=== PATIENT | female | born 1945 | race Caucasian/White ===

== ENCOUNTER → 2018-04-29 16:17 | Outpatient (CLI) | payer MEDICARE, SELFPAY ==
--- NOTE | 2018-04-29 16:20 | BI_ITS ---
MAMMOGRAPHY - BILATERAL SCREENING REASON FOR EXAM: Female, 73 years old. Routine annual screening examination. PERTINENT HISTORY: Aunt with breast cancer. TECHNIQUE: Digital bilateral breast brandin (3D mammographic acquisition) in the CC and MLO projections. 2-D mediolateral oblique (MLO) and craniocaudad (CC) views of both breasts were obtained. CAD: Full Field Digital Mammography with Computer Added Detection was performed. COMPARISON: Comparison is made with prior study dated February 21, 2017. FINDINGS: Breast Composition: The breasts are almost entirely fatty. There are no dominant masses or suspicious calcifications. No other significant abnormalities are identified. There has been no significant change since the prior study. BI/SCREENING MAMM (CAD), BILAT IMPRESSION: Stable bilateral screening mammogram. Yearly follow-up mammogram recommended. (A) ASSESSMENT CATEGORY: BIRADS Category 1: Negative. A letter regarding these results will be sent to the patient by the facility within 30 days. Approximately 10% of breast cancers are not detected by mammography. A normal mammogram should not delay biopsy of a clinically suspicious abnormality. [id number] Electronically Signed: Charly Sherman MD at 8:02 EST Tel [phone], Service support ,
== END ==
PROVIDERS: Family Provider Family Medicine; PCP Family Medicine; Referring Provider Nurse Practitioner Women's Health; Visit Provider Nurse Practitioner Women's Health
DX: Z12.31 Encounter for screening mammogram for malignant neoplasm of breast (principal)
CPT/HCPCS: 77063; 77067

== ENCOUNTER 2018-06-23 19:09 | Emergency (ER) | payer MEDICARE, SELFPAY ==
[2018-06-23 19:10] VITALS: BP 153/75; PULSE 74; RESP 16; TEMP 36.7; O2SAT 99; BMI 30.4
--- NOTE | 2018-06-23 19:15 | RAD_ITS ---
STUDY: X-RAY - RIGHT FOOT CLINICAL: Female, 73 years old. Trauma TECHNIQUE: 3 view(s) of the foot. COMPARISON: None. FINDINGS: There is a plantar aspect calcaneal spur. There is first metatarsal head bunion formation with hallux valgus deformity and degenerative changes of the first metatarsophalangeal joint. There is no evidence of fracture or dislocation. The soft tissues are unremarkable. RAD/Foot min 3 Views IMPRESSION: First metatarsal head bunion. Degenerative changes and hallux valgus deformity of the first metatarsophalangeal joint. Plantar aspect calcaneal spur. There is no evidence of fracture or dislocation. Electronically Signed: Nabil Galvan MD at 19:50 EST , Service support ,
--- NOTE | 2018-06-23 19:34 | ED.VISSUMM ---
- ER Visit Summary Date of Service: 06/23/18 Chief Complaint: Right foot injury History of Present Illness: The patient is a 73 F presenting with right foot injury. Patient states she stepped out of the car and twisted her foot and fell. She did not hit her head or lose consciousness. She tried Aleve at home. She is able to ambulate with pain. She complains of persistent pain in her right foot. Denies other injury. Physical Examination: Vitals are stable. Patient is afebrile. Alert no acute distress. HEENT exam is unremarkable. Neck is nontender Lungs are clear and equal bilaterally. Heart is regular rate and rhythm. Extremities right midfoot tenderness with swelling. Normal pulses. Right ankle, knee, and hip are nontender. Skin is warm and dry. No focal neurologic deficit. Remainder of exam is unremarkable. Emergency Department Course and Treatment: Right foot x-ray shows no evidence of fracture or dislocation. Patient declined pain medication. She is given a postop shoe. Advised to follow-up with her primary care physician. Advised return to ED for worsening complaints. Disposition: Discharge home Impression: Right foot contusion status post fall This note was generated with Help/Systems dictation software. It may contain incorrect words, spelling, and punctuation that were not noted in review of the chart prior to signing ED Disposition - Plan for ED Patient: Chief Complaint: Lower Extremity Injury Instructions: ED Contusion Foot Referrals: Sammy Ronquillo MD [Primary Care Provider] -
--- NOTE | 2018-06-23 20:45 | ED.DEP ---
ED Disposition - Plan for ED Patient: Chief Complaint: Lower Extremity Injury Instructions: ED Contusion Foot Referrals: Sammy Ronquillo MD [Primary Care Provider] -
[2018-06-23 21:50] VITALS: BP 150/88; PULSE 58; RESP 16; O2SAT 100
== END 2018-06-23 22:00 | disposition home or self-care (01) ==
PROVIDERS: Emergency Provider Emergency Medicine; Family Provider Family Medicine; PCP Family Medicine
DX: S90.31XA Contusion of right foot, initial encounter (principal); V48.4XXA Person boarding or alighting a car injured in noncollision transport accident, initial encounter; Y93.9 Activity, unspecified; Y92.89 Other specified places as the place of occurrence of the external cause; Y99.8 Other external cause status; E78.00 Pure hypercholesterolemia, unspecified
CPT/HCPCS: 73630; 99282

== ENCOUNTER → 2021-11-16 | Outpatient (CLI) | payer MEDICARE, SELFPAY ==
--- NOTE | 2021-11-16 12:30 | BI_ITS ---
MAMMOGRAPHY - BILATERAL SCREENING REASON FOR EXAM: Female, 76 years old. Routine annual screening examination. PERTINENT HISTORY: Aunt with breast cancer. TECHNIQUE: Digital bilateral breast curry (3D mammographic acquisition) in the CC and MLO projections. 2-D mediolateral oblique (MLO) and craniocaudad (CC) views of both breasts were obtained. CAD: Full Field Digital Mammography with Computer Added Detection was performed. COMPARISON: Screening mammogram from 04/29/2018, 02/21/2017. FINDINGS: Breast Composition: There are scattered areas of fibroglandular density. There are no dominant masses or suspicious calcifications. No other significant abnormalities are identified. There has been no significant change since the prior study. BI/SCRN MAMM (CAD)W/CURRY BILAT IMPRESSION: Stable bilateral screening mammogram. Yearly follow-up mammogram recommended. (A) ASSESSMENT CATEGORY: BIRADS Category 1: Negative. A letter regarding these results will be sent to the patient by the facility within 30 days. Approximately 10% of breast cancers are not detected by mammography. A normal mammogram should not delay biopsy of a clinically suspicious abnormality. [id number] Electronically Signed: Chukcy Rodriguez, at 18:03 EDT ,
== END | disposition home or self-care (01) ==
PROVIDERS: PCP Family Medicine; Visit Provider Nurse Practitioner Women's Health
DX: Z12.31 Encounter for screening mammogram for malignant neoplasm of breast (principal); Z80.3 Family history of malignant neoplasm of breast
CPT/HCPCS: 77063; 77067

== ENCOUNTER → 2022-04-12 | Outpatient (CLI) | payer MEDICARE, SELFPAY ==
[2022-04-12 12:14] LABS: Absolute Lymphocyte Count 1.24 X10^3/uL (0.83-4.51); Absolute Neutrophil Count 4.2 X10^3/uL (2.0-7.7); Basophil# 0.05 X10^3/uL; Basophil% 0.8 % (0-1); Eosinophil# 0.28 X10^3/uL; Eosinophils% 4.3 % (0-5); Hematocrit 42.9 % (37-47); Hemoglobin 13.5 g/dL (12.0-15.0); Lymphocyte # 1.24 X10^3/ul (0.83-4.51); Lymphocyte % 19.2 % (19-41); Mean Corp Hgb Conc 31.5 g/dL (32-36); Mean Corpuscular Hgb 27.7 pg (27.0-32.0); Mean Corpuscular Volume 88.1 fL (81-99); Mean Platelet Vol. 11.4 fl (6.2-12.0); Monocyte# 0.68 X10^3/uL; Monocyte% 10.5 % (0-10); NRBC Flagged by Analyzer 0 % (0-5); Neutrophil % 64.9 % (47-70); Platelet Count 257 K/mm3 (150-450); RBC Distribution Width SD 41.8 fl (35.1-43.9); Red Blood Count 4.87 M/mm3 (4.2-5.4); White Blood Count 6.5 K/mm3 (4.4-11.0)
[2022-04-12 12:27] LABS: ALB/GLOB Ratio 0.9 RATIO (0.9-2.4); AST(SGOT) 22 U/L (15-37); Alanine Aminotransfer ALT/SGPT 23 U/L (13-56); Albumin, Serum 3.5 g/dL (3.2-5.0); Alkaline Phosphatase 74 U/L (45-117); Anion Gap 5 (5-15); BUN 11 mg/dL (7-18); BUN/Creat Ratio 10.6 RATIO (10-20); Calcium,Total 9.3 mg/dL (8.5-10.1); Chloride 107 mmol/L (98-107); Cholesterol 145 mg/dL (200); Creatinine, Serum 1.04 mg/dL (0.55-1.02); EST Glomerular Filtration Rate 55 mL/min (>60); Est Glom Filt Rate - Afr Amer 66 mL/min (>60); Globulin 3.7 g/dL (2.2-4.2); Glucose 94 mg/dL (74-106); High Density Lipoprotein 57 mg/dL; Potassium 4.4 mmol/L (3.5-5.1); Protein, Total 7.2 g/dL (6.4-8.2); Sodium Level 140 mmol/L (136-145); Triglycerides 91 mg/dL; Very Low Density Lipoprotein 18 mg/dL (5-40)
== END | disposition home or self-care (01) ==
LOC: BIMLAB 09:16
PROVIDERS: PCP Internal Medicine; Referring Provider Internal Medicine; Visit Provider Internal Medicine
DX: E78.00 Pure hypercholesterolemia, unspecified (principal); K62.5 Hemorrhage of anus and rectum
CPT/HCPCS: 36415; 80053; 80061; 85025

== ENCOUNTER → 2022-05-29 | Outpatient (CLI) | payer MEDICARE, SELFPAY | END | disposition home or self-care (01) | LOC: LABSPEC 11:40 | PROVIDERS: PCP Internal Medicine; Referring Provider Internal Medicine; Visit Provider Internal Medicine | DX: R05.9 Cough, unspecified (principal) | CPT/HCPCS: 87635; U0003; U0005 ==

== ENCOUNTER 2022-08-02 06:26 | Day surgery (SDC) | payer MEDICARE, SELFPAY ==
[2022-08-02] MEDS: Lactated Ringers 1,000 ML 15 ML IV (06:45)
[2022-08-02 06:56] VITALS: BP 127/65; PULSE 71; RESP 16; TEMP 35.9; O2SAT 96; BMI 29.5
--- NOTE | 2022-08-02 07:30 | COLBX_PTH ---
PATIENT: EMERSON SALEH LOC: EN U#:[id number] AGE/SX: 77/F ROOM: RE08/02/[address]: Dr. Drew Torres MD : 1945 BED: DIS: 08/02/2022 SPEC #: [id number] RECD: 08/02/22 13:21 STATUS: HALLE GARCIA #: [id number] RYAN: 08/02/22 07:[address]: Drew Torres DEPT: SURGICAL PATHOLOGY RECD BY: Gayle Damon ENTERED: 08/02/22 13:45 SP TYPE: COLON BX OTHR DR: Dr. Karolina Lamb MD Tissues: Rectum, NOS Procedures: Surgery Specimen Level IV HEADER OPERATION: Colonoscopy (MAC), biopsy PRE-OP DIAGNOSIS: Bright red blood per rectum TISSUE SUBMITTED: Rectal biopsy MICROSCOPIC DIAGNOSIS Rectum, biopsy: Chronic active colitis pattern of injury with mild activity. See comment. AM:ruth 08/03/2022 COMMENT Sections show glandular distortion, expansion of lamina propria by inflammatory cells, cryptitis without crypt abscesses, fissuring ulcers or transmural lymphoid aggregates. Clinical correlation is suggested. MICROSCOPIC DESCRIPTION Slides are reviewed. GROSS DESCRIPTION Received in fixative is one container labeled with the patient's name and designated rectal biopsy. The specimen consists of two irregular fragments of light dobbs soft tissue that in aggregate measure 0.6 x 0.3 x 0.1 cm. The specimen is totally submitted in one cassette. / SJ:ruth 08/02/2022 TC:2 CPT: 55476
--- NOTE | 2022-08-02 07:39 | HP.PCM_ITS ---
History and Physical Date of Admission: 08/02/22 Date of Service:? 06/08/22 MR#: [id number] Acct: [id number] Name:EMERSON JOHNSON Rep #: [id number] : 1945 ? ? Provider: Dr. Drew Torres MD Age/Sex:? 77/F ? ? Location: [facility] Status: Signed Intake Vital Signs ? 06/08/2213:17 Height 5 ft 4 in Weight: 180 lb 2 oz BMI 30.9 BP 153/78 H Blood Pressure Location Rt brachial Position Sitting Respiration 18 Pulse 69 Pulse Source Monitor D Temp 97.3 F L Temp Source Temporal Pulse Oximetry (%) 97 Oxygen Delivery Method room air Intake Visit Reasons:?HEMORRHAGEOF ANUS AND RECTUM - POSSIBLE BANDING Chief Complaint: Hemorrhage of anus and rectum Corporate Buyer Required: No Is patient in pain?: No Allergies No Known Allergies Allergy (Unverified 06/08/22 13:20) Medications atorvastatin 10 mg tablet (Lipitor) 10 mg PO DAILY 05/13/18 [History Confirmed 06/08/22] calcium carbonate 600 mg calcium (1,500 mg) tablet (Calcium) 600 mg PO DAILY 11/21/21 [History Confirmed 06/08/22] cranberry 400 mg capsule 400 mg PO DAILY 11/21/21 [History Confirmed 06/08/22] glucosamine HCl 500 mg tablet 500 mg PO DAILY 11/21/21 [History Confirmed 06/08/22] multivitamin 1 tab PO DAILY 11/21/21 [History Confirmed 06/08/22] omega-3 fatty acids 1,000 mg capsule 1,000 mg PO DAILY 11/21/21 [History Confirmed 06/08/22] vit A 7,160 unit-vit C 113 mg-vit E 100 qofs-[id number]-gycinv tablet tab PO 11/21/21 [History Confirmed 06/08/22] PFSH Medical History? High cholesterol Surgical History? H/O tubal ligation Family History? Father Heart diseaseMother Diabetes Social History? household members:? none housing:? house current occupational status:? 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 Never smoker Electronic Cigarette Use:? not used alcohol intake:? current alcohol intake frequency: holidays/special occasions only substance use type:? does not use what type of physical activity do you participate in:? walking frequency:? 3-4 times per week seatbelt use:? always do you feel safe at home:? Yes additional social history:? HPI HPI HPI: Patient is a 77-year-old female who presents for complaint of bright red blood per rectum.? They first noted this issue over a month ago.? She states that this is painless bleeding and that her primary care provider, Dr. Lamb, believe this may be related to hemorrhoids.? However, their use of cortisone cream has had no effect.? Patient reports that she is having bleeding with almost every bowel movement and then experiences some bleeding in the intervals between bowel movements occasionally.? She reports a volume of bleeding and has a tablespoon at most.? Generally when considering her bowel movements she describes a frequency of 1 time per day with minimal straining.? She admits that her consistency can sometimes be hard.? She reports a toilet time of no more than 5 minutes generally.? She has no history of incontinence of stool.? She eats a well-balanced, high-fiber diet with oatmeal and vegetables.? She admits a history of hemorrhoids, but states that these have always responded to conservative measures and no intervention has ever been required.? She also states that the current presentation is confusing as she has no pain or tissue protrusion whereas her previous experience was with external hemorrhoids and both of these things were true.? There is no personal history of inflammatory bowel disease, colon cancer, or diverticulitis.? She does report that she believes she is up-to-date on colonoscopy exams and estimates her last exam was 5 to 10 years ago through a [facility] facility here locally.? She believes she was given a 10-year follow-up on that exam. Patient believes her mother may have had a history of colon polyps, but otherwise there are no remarkable GI diagnoses. Patient is not prescribed any blood thinners or anticoagulation. Patient remarks of occasional reflux symptoms, but states this is much better than previously when she would occasionally be woken up out of her sleep with reflux. Patient's only prior abdominal surgical history with a tubal ligation ROS General General: No weight change, appetite, fatigue, colon cancer, breast cancer or weakness HEENT HEENT: No difficulty swallowing, eye injury, eye surgery, swollen glands or hoarseness Endo Endocrine: No thyroid disease, diabetes mellitus, thyroid cancer, Hair loss, heat intolerance or cold intolerance Skin Skin: No rash or changing moles Breast Breast: No left breast lump, right breast lump, nipple discharge, breast pain, abnormal mammogram, abnormal US or breast enlargement Musc Musculoskeletal: Yes arthritis; No back problems, rheumatoid arthritis, gout or joint pain Cardio Cardiovascular: No murmur, pacemaker, heart disease, atrial fibrillation, high blood pressure, heart attack, heart stent, palpitations, shortness of breat with exertion or chest pain Psych Psychiatric: No depression, anxiety or hearing voices Resp Respiratory: No shortness of breath, No sleep apnea, No cough, No COPD, No asthma, No emphysema and No wheezing Gastro Gastrointestinal: No abdominal pain, No nausea or vomiting, No diarrhea, No constipation, Yes blood in stool, No acid reflux, Yes hemorrhoids, No ulcers, No gallbladder problem and No black,tarry stools Frank Hematologic: No blood thinners, No blood disorders, Yes bleeding, No anemia and No blood clots Neuro Neurologic: No system reviewed and no additional complaints, except as documented, No as per HPI, No abnormal gait, No abnormal hearing, No abnormal movements, No abnormal speech, No behavioral changes, No burning sensations, No confusion, No convulsions, No disequilibrium, No dizziness, No localized weakness, No frequent falls, No headache(s), No lack of coordination, No loss of vision, No memory loss, No numbness, No other visual disturbances, No radicular pain, No restless legs, No sensory deficit, No syncope, No tingling, No tremor(s), No weakness and No other Exam Const General: cooperative, healthy appearing, comfortable and no acute distress Orientation: alert, awake and oriented x3 GI Rectal Exam: normal sphincter tone and hemorrhoids (Patient has evidence of engorgement of right posterior column hemorrhoids) Other: External evidence of skin tags, normal sphincter tone, palpable engorged hemorrhoid tissue right anterior position.? Gloved finger when withdrawn does not exhibit signs of blood Assessment and Plan Assessment and Plan (1) Bright red blood per rectum: ?Status:?Acute ?Comment: This is a 77-year-old, generally healthy, female who presents for concerns of over 1 month history of noting bright red blood per rectum with bowel movements.? This would be painless bleeding and she denies any significant problems with constipation.? She does have a history of hemorrhoids and seems to have some mild engorgement of hemorrhoids on digital rectal exam.? Although she reports that she believes she is up-to-date on her colonoscopies, it has been over 5 years since her most recent exam.? With her complaints, I have recommended that we proceed for a diagnostic colonoscopy and then could consider banding of any engorged hemorrhoids at that time?taking advantage of sedation provided by anesthesia.? Patient was accepting of this recommendation and we will look to arrange a date.? Patient was provided prep instructions prior to her departure. ?Plan: Plan will be to complete colonoscopy on first mutually agreeable date under local MAC.? Pre-procedure prep discussed and paper instructions provided.? Patient is also made aware that she will need to have a shuttle bus driver with her the day of the procedure. I have examined the patient and the H&P has been reviewed. There are no clinical changes since date of exam. Patient confirms that she continues to have occasional bright red blood per rectum?which she attributes to hemorrhoids. She does not have any symptomatic anemia. She confirms that she completed her prep today's procedure. Plan to proceed to the endoscopy suite for diagnostic colonoscopy as discussed above.
[2022-08-02 08:40] VITALS: BP 117/72; BP 127/65; PULSE 78; RESP 16; TEMP 36.7; O2SAT 98
[2022-08-02 08:45] VITALS: BP 123/70; BP 127/65; PULSE 74; RESP 16; O2SAT 97
[2022-08-02 08:50] VITALS: BP 124/71; BP 127/65; PULSE 74; RESP 16; O2SAT 97
--- NOTE | 2022-08-02 08:50 | OP.COLON_ITS ---
Patient Name: Simran Mccullough Procedure Date: 08/02/2022 7:15 AM Date of : 1945 Age: 77 Procedure: Colonoscopy Indications: Hematochezia Providers: Drew Torres MD Referring MD: Drew Torres MD Medicines: See the Anesthesia note for documentation of the administered medications Patient Profile: Refer to note in patient chart for documentation of history and physical. Last Colonoscopy: several years ago. Complications: No immediate complications. Estimated blood loss: Minimal. Procedure: Pre-Anesthesia Assessment: - The heart rate, respiratory rate, oxygen saturations, blood pressure, adequacy of pulmonary ventilation, and response to care were monitored throughout the procedure. After I obtained informed consent, the scope was passed under direct vision. Throughout the procedure, the patient's blood pressure, pulse, and oxygen saturations were monitored continuously. The colonoscope was introduced through the anus and advanced to the cecum, identified by appendiceal orifice and ileocecal valve. The colonoscopy was somewhat difficult due to poor bowel prep and significant looping. Successful completion of the procedure was aided by changing the patient to a supine position and lavage. Scope In: 7:45:19 AM Scope Withdrawal Time 0 hours 21 minutes 25 seconds Scope Out: 8:34:08 AM Total Procedure Duration Time 0 hours 48 minutes 49 seconds Findings: Many small and large-mouthed diverticula were found in the sigmoid colon. No biopsies or other specimens were collected for this exam. Localized moderate mucosal changes characterized by congestion (edema) and erythema were found in the rectum. Biopsies were taken with a cold forceps for histology. Estimated blood loss was minimal. Skin tags were found on perianal exam. Impression: - Diverticulosis in the sigmoid colon. No specimens collected. - Localized moderate mucosal changes were found in the rectum secondary to proctitis. Biopsied. - Perianal skin tags found on perianal exam. Recommendation: - Discharge patient to home (via wheelchair). - High fiber diet today. - Await pathology results. - Telephone my office for pathology results in 1 week. - Repeat colonoscopy is recommended [Repeat reason]. The colonoscopy date will be determined after pathology results from today's exam become available for review. - Continue present medications. Procedure Code(s): --- Professional --- 87376, Colonoscopy, flexible; with biopsy, single or multiple Diagnosis Code(s): --- Professional --- K62.89, Other specified diseases of anus and rectum K64.4, Residual hemorrhoidal skin tags K92.1, Melena (includes Hematochezia) K57.30, Diverticulosis of large intestine without perforation or abscess without bleeding CPT copyright 2017 [employer]. All rights reserved. The codes documented in this report are preliminary and upon hoop coiling machine operator review may be revised to meet current compliance requirements. Drew Torres MD 08/02/2022 8:50:25 AM This report has been signed electronically. Number of Addenda: 0 Note Initiated On: 08/02/2022 7:15 AM
--- NOTE | 2022-08-02 08:51 | OP.CCLET_ITS ---
08/02/2022 Karolina Lamb Md Re : Colonoscopy procedure for Simran Mccullough Dear Adonis This procedure was performed on July. My impressions and recommendations are as follows: Impressions : - Diverticulosis in the sigmoid colon. No specimens collected. - Localized moderate mucosal changes were found in the rectum secondary to proctitis. Biopsied. - Perianal skin tags found on perianal exam. Recommendations : - Discharge patient to home (via wheelchair). - High fiber diet today. - Await pathology results. - Telephone my office for pathology results in 1 week. - Repeat colonoscopy is recommended [Repeat reason]. The colonoscopy date will be determined after pathology results from today's exam become available for review. - Continue present medications. My findings are described in the full procedure note, which is enclosed. If I can be of further assistance, please feel free to contact me at Doctor phone number(s): , Work: . Sincerely, Drew Torres MD 08/02/2022 8:50:25 AM This report has been signed electronically.
[2022-08-02 08:56] VITALS: BP 106/85; BP 127/65; PULSE 70; RESP 16; TEMP 36.2; O2SAT 98
[2022-08-02 09:16] VITALS: BP 127/65
== END 2022-08-02 09:56 | disposition home or self-care (01) ==
LOC: EN 06:31 → AC 06:31
PROVIDERS: PCP Internal Medicine; Referring Provider Surgery; Visit Provider Surgery
PROC: 0DJD8ZZ Inspection of Lower Intestinal Tract, Via Natural or Artificial Opening Endoscopic (ICD-10-PCS; CPT 45378; principal; 2022-08-02 07:25)
DX: K52.9 Noninfective gastroenteritis and colitis, unspecified (principal); K57.30 Diverticulosis of large intestine without perforation or abscess without bleeding; K21.9 Gastro-esophageal reflux disease without esophagitis; K64.4 Residual hemorrhoidal skin tags; K62.89 Other specified diseases of anus and rectum
CPT/HCPCS: 45380; 88305; J7120; J2405

== ENCOUNTER → 2022-08-23 | Outpatient (CLI) | payer MEDICARE, SELFPAY ==
[2022-08-27 21:24] LABS: Calprotectin, Stool 136 ug/g (0-120)
== END | disposition home or self-care (01) ==
LOC: PAVLAB 13:19
PROVIDERS: PCP Internal Medicine; Referring Provider Surgery; Visit Provider Surgery
DX: K62.5 Hemorrhage of anus and rectum (principal)
CPT/HCPCS: 36415; 83993; 86140

== ENCOUNTER → 2022-09-21 | Outpatient (CLI) | payer MEDICARE, SELFPAY ==
[2022-09-21 09:56] LABS: CRP 6.05 mg/L (0.0-3.0)
[2022-09-25 11:13] LABS: Calprotectin, Stool <16 ug/g (0-120)
== END | disposition home or self-care (01) ==
LOC: PAVLAB 09:27
PROVIDERS: PCP Internal Medicine; Referring Provider Surgery; Visit Provider Surgery
DX: K51.211 Ulcerative (chronic) proctitis with rectal bleeding (principal)
CPT/HCPCS: 36415; 83993; 86140

== ENCOUNTER → 2022-12-07 | Outpatient (CLI) | payer MEDICARE, SELFPAY ==
--- NOTE | 2022-12-07 13:27 | BI_ITS ---
MAMMOGRAPHY - BILATERAL SCREENING REASON FOR EXAM: Female, 77 years old. Routine annual screening examination. PERTINENT HISTORY: Aunt with breast cancer. TECHNIQUE: Digital bilateral breast curry (3D mammographic acquisition) in the CC and MLO projections. 2-D mediolateral oblique (MLO) and craniocaudad (CC) views of both breasts were obtained. CAD: Full Field Digital Mammography with Computer Added Detection was performed. COMPARISON: Comparison is made with prior study dated November 16, 2021 and April 29, 2018. FINDINGS: Breast Composition: There are scattered areas of fibroglandular density. There are no dominant masses or suspicious calcifications. No other significant abnormalities are identified. There has been no significant change since the prior study. BI/SCRN MAMM (CAD)W/CURRY BILAT IMPRESSION: Stable bilateral screening mammogram. Yearly follow-up mammogram recommended. (A) ASSESSMENT CATEGORY: BIRADS Category 1: Negative. A letter regarding these results will be sent to the patient by the facility within 30 days. Approximately 10% of breast cancers are not detected by mammography. A normal mammogram should not delay biopsy of a clinically suspicious abnormality. [id number] Electronically Signed: Charly Sherman MD at 14:18 EDT ,
== END | disposition home or self-care (01) ==
LOC: OPBI 13:26
PROVIDERS: PCP Internal Medicine; Referring Provider Nurse Practitioner Women's Health; Visit Provider Nurse Practitioner Women's Health
DX: Z12.31 Encounter for screening mammogram for malignant neoplasm of breast (principal); Z80.3 Family history of malignant neoplasm of breast
CPT/HCPCS: 77063; 77067

== ENCOUNTER 2022-12-20 05:24 | Emergency (ER) | payer MEDICARE, SELFPAY ==
[2022-12-20 05:28] VITALS: BP 167/83; PULSE 86; RESP 16; TEMP 35.6; O2SAT 98; BMI 30.6
--- NOTE | 2022-12-20 05:45 | RAD_ITS ---
INDICATION: hip pain EXAMINATION/TECHNIQUE: X-RAY - XR Hip Unilateral with Pelvis when performed; 2-3 Views COMPARISON: AP pelvis with AP and frog-leg left hip FINDINGS: PELVIC BONES: No displaced fracture, destructive or sclerotic lesions. Note that overlapping bowel shadows may however obscure fine detail. Sacroiliac joints are appropriately aligned with mild degenerative change. No widening of the pubic symphysis. HIPS: Normal bilateral hip alignment with minimal osteophyte formation and mild joint space narrowing.. No femoral fracture appreciated. SOFT TISSUES: No soft tissue swelling or gas. Large colonic stool burden. RAD/HIP, UNI W/ Pelvis 2-3 Views IMPRESSION: No acute osseous finding. Mild bilateral hip and sacroiliac joint degenerative change Electronically Signed: Humberto Otto MD at 6:21 EDT ,
--- NOTE | 2022-12-20 05:48 | EDS_ITS ---
HPI History of Present Illness HPI Narrative: Left hip and proximal thigh pain while walking. No fall or trauma. No prior history. Chief Complaint: Lower Extremity Injury Informant: patient Occured/Mechanism Mechanism/Context: No injury and No blunt trauma Onset/Context/Timing Onset: Today Context: Sudden Onset Timing: Continuous Quality of Pain: Dull and Aching Current Severity: Mild Maximum Severity: Mild Associated Symptoms Associated Symptoms: Negative for Parasthesia, Weakness or Loss of Funtion Narrative Narrative: 77-year-old female past medical history of high cholesterol. Said at 330 this morning she got up out of bed and started to walk and noticed discomfort in her left thigh and hip. No fall or trauma. No prior history. She is able to ambulate is just uncomfortable. She has never had any hip or knee surgery. She denies any swelling. No recent illness. She is going out of town on a trip in to have this evaluated prior to leaving. Prior similar symptoms: No Recent Illness/Hospitalization: No PFSH PFSH Medical History Alcohol use Arthritis Cancer Change in bowel habit Gastric reflux Heartburn High cholesterol Leg cramps Low iron Non-smoker Post-menopausal Wears glasses Home Medications atorvastatin 10 mg tablet (Lipitor) 10 mg PO DAILY 05/13/18 [History Last Taken Unknown] calcium carbonate 600 mg calcium (1,500 mg) tablet (Calcium) 600 mg PO DAILY 11/21/21 [History Last Taken Unknown] cranberry 400 mg capsule 400 mg PO DAILY 11/21/21 [History Last Taken Unknown] glucosamine HCl 500 mg tablet 500 mg PO DAILY 11/21/21 [History Last Taken Unknown] multivitamin 1 tab PO DAILY 11/21/21 [History Last Taken Unknown] omega-3 fatty acids 1,000 mg capsule 1,000 mg PO DAILY 11/21/21 [History Last Taken Unknown] vit A 7,160 unit-vit C 113 mg-vit E 100 [id number]-[id number] tablet 1 tab PO QODAY 11/21/21 [History Last Taken Unknown] aspirin 81 mg tablet,delayed release (Adult Aspirin Regimen) 81 mg PO DAILY 12/20/22 [History Last Taken Unknown] Allergy/AdvReac Type Severity Reaction Status Date / Time No Known Allergies Allergy Verified 12/20/22 05:26 Family History Father Heart disease Mother Diabetes Surgical History H/O tubal ligation Hx of colonoscopy Surgical History no surgical history Social History household members: none housing: house current occupational status: retired current occupation: teaching Smoking Status: Never smoker Electronic Cigarette Use: not used alcohol intake: current alcohol intake frequency: holidays/special occasions only substance use type: does not use what type of physical activity do you participate in: walking frequency: 3-4 times per week seatbelt use: always do you feel safe at home: Yes additional social history: ROS ROS ED ROS Narrative Denies recent illness. Review of Systems ROS Unobtainable: Denies due to encephalopathy Constitutional Constitutional ED: Denies chills or fever(s) Eyes Eyes: Denies blurry vision ENT ENT ED: Denies ear pain Cardiovascular Cardiovascular: Denies chest pain Respiratory/Chest Respiratory/Chest: Denies cough Gastrointestinal Gastrointestinal: Denies abdominal pain Genitourinary Genitourinary ED: Denies dysuria Musculoskeletal Musculoskeletal: Denies arthralgias or back pain Integumentary Denies abscess Neurologic Neurologic: Denies headache(s) Psychiatric Psychiatric: Denies anxiety Endocrine Endocrinology: Denies polydipsia Hematologic/Lymphatic Hematologic/Lymphatic: Denies easy bleeding or easy bruising Allergic/Immunologic Allergic/Immunologic ED: Denies mouth swelling or tongue swelling EXAM Physical Exam Narrative Exam Narrative: 77-year-old female no acute distress. Vital signs stable afebrile. Sitting upright in bed. Clinically looks well. H EENT exam unremarkable. Lungs clear. Heart regular rhythm no murmur. Rate about 80. Abdomen soft nontender normal bowel sounds no peritoneal signs. Moving all 4 extremities. Neurovascular intact. 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 Equal symmetrical radial pulses. Has normal flexion and extension of both hips, knees ankle and feet. Dorsi plantarflexion intact. Strong DP pulses. Calves are nontender without edema. She has mild discomfort to the proximal left thigh anteriorly and medially. There is no bony deformity. No shortening or rotation. There is no redness or warmth of the skin. There is no bruising or trauma. There is no deficit of the muscle. Skins intact. Normal appearing. Back nontender. Neurologically she is awake and alert with no focal motor or sensory deficits. Const Vital Signs: 12/20/22 05:28 Temperature 96.1 F L Temperature Source Temporal Pulse Rate 86 Respiratory Rate 16 Blood Pressure 167/83 H Blood Pressure Mean 111 Pulse Ox 98 Oxygen Delivery Method Room Air Positive well nourished and well developed; Negative for cachectic, contractures or unkempt General Appearance ED: well developed and NAD; Negative for unkempt, cachectic or contractures Nutritional Appearance: Negative for cachectic HEENT Reports moist mucous membranes normocephalic and atraumatic; Negative for trauma or tenderness Eyes PERRL General Eye ED: Negative for other Neck full ROM and supple Thyroid: Negative for tender Lymph Lymphatic: Negative for other Chest Wall inspection of chest normal and palpation of chest normal Resp normal respiratory effort, no retractions and clear to auscultation bilaterally Effort and Inspection: Negative for pain with movement Auscultation: Negative for rales, rhonchi or wheezes Cardio regular rate, regular rhythm, S1 normal heart sound, S2 normal heart sound and no murmurs Rate: Negative for bradycardia or tachycardic Rhythm: Negative for abnormal rhythm Bruits: Negative for other GI non-tender, non-distended and no masses Inspection: Negative for abdominal distention Auscultation: normoactive bowel sounds Palpation: soft; Negative for tender or guarding Bladder / Kidney Exam: No other Back/Spine no CVA tenderness General Back: Negative for CVA tenderness or swelling Cervical Spine: Negative for cervical spine tenderness Thoracic Spine / Upper Back: Negative for thoracic spinal tenderness Lumbar Spine / Lower Back: Negative for lumbar spinal tenderness Extremity normal to inspection and full ROM Extremity Narrative: Mild left anterior thigh tenderness. No redness or warmth. Normal range of motion to the left hip, knee, ankle foot. Palpable DP pulse. Calf is nontender without edema. There is no discoloration of left thigh. No bruising, redness or warmth. No shortening or rotation. She did get up out of bed and can ambulate but has discomfort to the thigh and hip. General Extremety ED: Yes weight-bearing difficulty; Negative for cyanosis or edema General Extremity: weight-bearing difficulty; Negative for cyanosis or edema Neuro oriented x3, CN's II-XII intact bilaterally and moves all extremities Sensorium / Orientation: alert, oriented to person, oriented to place and oriented to time; Negative for orientation impaired, confused, lethargic or stuporous Motor Exam: strength 5/5 throughout Psych mental status grossly normal Appearance: Negative for unkempt Speech: No other Mood & Affect: Negative for anxious Skin no wounds Lesions: no lesions Rashes: no rashes Trauma: Negative for abrasion, laceration or puncture MDM MDM MDM Narrative Medical decision making narrative: Healthy 77-year-old female has pain in her left thigh and hip. Clinically this is most likely a left hip strain. X-ray will be obtained to rule out a nondisplaced hip fracture. There is no signs of this being infectious in etiology. There is no dislocation. There is no signs of any circulation issues. Repeat exam doing well at 6:20 AM. Ice to the area. Motrin and Tylenol for pain. Follow-up if not improving. History & Record Review Discussion w/independent historian: Patient Radiography Diagnostic Testing: Clinical Impression(s) from Imaging Studies Hip/Pelvis X-Ray 12/20/22 05:45 IMPRESSION: No acute osseous finding. 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 No fracture. No dislocation. I did go over the films with the patient. Discharge Plan Triage Chief Complaint: Lower Extremity Injury ED Provider: Baldomero Campbell Dx/Rx/DC Orders Clinical Impression: Muscle strain of left thigh Instructions: ED Muscle Strain, Extremity Prescriptions: No Action atorvastatin [Lipitor] 10 mg tablet 10 mg PO DAILY multivitamin Tablet 1 tab PO DAILY omega-3 fatty acids 1,000 mg capsule 1,000 mg PO DAILY calcium carbonate [Calcium 600] 600 mg calcium (1,500 mg) tablet 600 mg PO DAILY vit A-vit C-vit [id number] 7,160-113-100 [id number]-[id number] tablet 1 tab PO QODAY cranberry 400 mg capsule 400 mg PO DAILY Rx Instructions: administer with a meal glucosamine HCl 500 mg tablet 500 mg PO DAILY Rx Instructions: administer with a meal aspirin [Adult Aspirin Regimen] 81 mg tablet,delayed release (DR/EC) 81 mg PO DAILY Primary Care Provider: Karolina Lamb Referrals: Karolina Lamb MD [Primary Care Provider] - 1 Week if not improving Activity Restrictions/Additional Instructions: This appears to be a strain of your left thigh and hip muscles. Ice to decrease pain and inflammation. Motrin for pain and swelling. Alternate with Tylenol for pain. This should progressively improve is going to be sore for several days and should start getting better. You can do your normal activity do not overdo it because the muscles need to heal. Follow-up with your doctor if not improving or getting worse. Currently there is no signs of any infection. No signs of any broken or dislocated bones. No signs of any circulation problems. Disposition Disposition: Home, Self Care
[2022-12-20 06:32] VITALS: BP 158/84; PULSE 52; RESP 18; O2SAT 97
== END 2022-12-20 06:33 | disposition home or self-care (01) ==
PROVIDERS: Emergency Provider Emergency Medicine; PCP Internal Medicine; Visit Provider Emergency Medicine
DX: S76.912A Strain of unspecified muscles, fascia and tendons at thigh level, left thigh, initial encounter (principal); E78.00 Pure hypercholesterolemia, unspecified; X58.XXXA Exposure to other specified factors, initial encounter
CPT/HCPCS: 73502; 99282

== ENCOUNTER → 2023-02-04 | Outpatient (CLI) | payer MEDICARE, SELFPAY ==
--- NOTE | 2023-02-04 10:52 | ART_ITS ---
Reason For Study: PVD Procedure A bilateral lower extremity continuous wave Doppler with analog waveform analysis,segmental pressures,and ankle brachial indexes with exercise. PT walked on treadmill for 5 min. @ 2.2 MPH @ 5% INCLINE. PT had no complaints/pain/fatigue. Left Segmental Pressures Left brachial= 148mmHg. Left thigh = 172mmHg. Left calf = 178mmHg. Left posterior tibial artery = 162mmHg. Left dorsalis pedis artery = 168mmHg. The left posterior tibial artery waveforms are triphasic. The left dorsalis pedis waveforms are triphasic. Right Segmental Pressures Right brachial= 148mmHg. Right thigh = 167mmHg. Right calf = 164mmHg. Right posterior tibial artery = 172mmHg. Right dorsalis pedis artery = 161mmHg. The right posterior tibial artery waveforms are triphasic. The right dorsalis pedis waveforms are triphasic. Indices The right resting ankle brachial index is 1.16. The right ankle brachial index by the posterior tibial artery is 1.16. The right ankle brachial index by the dorsalis pedis is 1.09. The right post exercise ankle brachial index is 1.17. The left resting ankle brachial index is 1.14. The left ankle brachial index by the posterior tibial artery is 1.09. The left ankle brachial index by the dorsalis pedis is 1.14. The left post exercise ankle brachial index is 1.13. VL/Lower Ext Art Exam w/ Exercise Interpretation Summary Right LINDSEY 1.16, normal. Doppler/PVR waveforms of the right leg normal at rest. Right lower extremity exhibits normal response to exercise. Left LINDSEY 1.14, normal. Doppler/PVR waveforms of the left leg normal at rest. Left lower extremity exhibits normal response to exercise. Ordering Physician: Michelle Delgadillo Referring Physician: Karolina Lamb Performed By: Denae Mendoza RVT, RDCS
== END | disposition home or self-care (01) ==
PROVIDERS: PCP Internal Medicine; Referring Provider Physician Assistant; Visit Provider Physician Assistant
DX: I73.9 Peripheral vascular disease, unspecified (principal)
CPT/HCPCS: 93924

== ENCOUNTER → 2023-03-29 | Outpatient (CLI) | payer MEDICARE, SELFPAY ==
[2023-03-29 11:02] LABS: CRP < 2.90 mg/L (0.0-3.0)
[2023-04-01 21:07] LABS: Calprotectin, Stool 84 ug/g (0-120)
== END | disposition home or self-care (01) ==
PROVIDERS: PCP Internal Medicine; Referring Provider Surgery; Visit Provider Surgery
DX: K51.211 Ulcerative (chronic) proctitis with rectal bleeding (principal)
CPT/HCPCS: 36415; 83993; 86140

== ENCOUNTER → 2023-04-18 | Outpatient (CLI) | payer MEDICARE, SELFPAY ==
[2023-04-18 12:21] LABS: Absolute Lymphocyte Count 1.77 X10^3/uL (0.83-4.51); Absolute Neutrophil Count 5.7 X10^3/uL (2.0-7.7); Basophil# 0.06 X10^3/uL; Basophil% 0.7 % (0-1); Eosinophil# 0.37 X10^3/uL; Eosinophils% 4.3 % (0-5); Hematocrit 39.2 % (37-47); Lymphocyte # 1.77 X10^3/ul (0.83-4.51); Lymphocyte % 20.7 % (19-41); Mean Corp Hgb Conc 30.6 g/dL (32-36); Mean Corpuscular Hgb 27.6 pg (27.0-32.0); Mean Corpuscular Volume 90.3 fL (81-99); Mean Platelet Vol. 10.8 fl (6.2-12.0); Monocyte# 0.64 X10^3/uL; Monocyte% 7.5 % (0-10); NRBC Flagged by Analyzer 0 % (0-5); Neutrophil # 5.67 X10^3/uL (2.7-7.7); Neutrophil % 66.2 % (47-70); Platelet Count 321 K/mm3 (150-450); RBC Distribution Width CV 12.6 % (11.6-14.6); RBC Distribution Width SD 41.7 fl (35.1-43.9); Red Blood Count 4.34 M/mm3 (4.2-5.4); White Blood Count 8.6 K/mm3 (4.4-11.0)
[2023-04-18 13:01] LABS: ALB/GLOB Ratio 0.8 RATIO (0.9-2.4); AST(SGOT) 17 U/L (15-37); Alanine Aminotransfer ALT/SGPT 22 U/L (13-56); Alkaline Phosphatase 86 U/L (45-117); Anion Gap 4 (5-15); BUN 17 mg/dL (7-18); BUN/Creat Ratio 16.2 RATIO (10-20); Calcium,Total 8.9 mg/dL (8.5-10.1); Chloride 109 mmol/L (98-107); Cholesterol 131 mg/dL (200); Creatinine, Serum 1.05 mg/dL (0.55-1.02); EST Glomerular Filtration Rate 54 mL/min (>60); Est Glom Filt Rate - Afr Amer 65 mL/min (>60); Globulin 3.9 g/dL (2.2-4.2); Glucose 101 mg/dL (74-106); High Density Lipoprotein 48 mg/dL; Potassium 4.4 mmol/L (3.5-5.1); Protein, Total 6.9 g/dL (6.4-8.2); Sodium Level 142 mmol/L (136-145); Triglycerides 92 mg/dL; Very Low Density Lipoprotein 18 mg/dL (5-40)
== END | disposition home or self-care (01) ==
LOC: BIMLAB 09:24
PROVIDERS: PCP Internal Medicine; Referring Provider Internal Medicine; Visit Provider Internal Medicine
DX: K51.211 Ulcerative (chronic) proctitis with rectal bleeding (principal); E78.00 Pure hypercholesterolemia, unspecified
CPT/HCPCS: 36415; 80053; 80061; 85025

== ENCOUNTER → 2023-05-21 | Outpatient (CLI) | payer MEDICARE, SELFPAY ==
--- NOTE | 2023-05-21 08:55 | US_ITS ---
STUDY: ULTRASOUND - URINARY BLADDER REASON FOR EXAM: Female, 78 years old. incomplete bladder emptying TECHNIQUE: Ultrasound evaluation of the urinary bladder was performed with real-time and static up-scale imaging. COMPARISON: None. FINDINGS: There is no right UVJ calculus. There is a non-visualization of a right ureteral jet. There is no left UVJ calculus. There is a visualized left ureteral jet. The distended volume of the urinary bladder is 24. ml. The empty volume of the urinary bladder is 21 ml. The bladder wall is within normal limits. The bladder wall measures 2. There is no demonstrated bladder wall mass lesion. There are no demonstrated bladder calculi. US/Post Void Residual Bladder IMPRESSION: Limited by incomplete distention of the bladder. Otherwise unremarkable ultrasound of the urinary bladder. Electronically Signed: Ephraim Berg MD at 16:38 EST ,
== END | disposition home or self-care (01) ==
LOC: US 08:53
PROVIDERS: PCP Internal Medicine; Referring Provider Internal Medicine; Visit Provider Internal Medicine
DX: R33.9 Retention of urine, unspecified (principal)
CPT/HCPCS: 51798

== ENCOUNTER 2023-06-06 13:22 | Outpatient (CLI) | payer MEDICARE, SELFPAY | END 2023-06-06 23:59 | disposition home or self-care (01) | PROVIDERS: PCP Internal Medicine; Referring Provider Surgery; Visit Provider Surgery | DX: K51.211 Ulcerative (chronic) proctitis with rectal bleeding (principal) | CPT/HCPCS: 82274; 83630; 87177; 87209; 87493; 87506 ==

== ENCOUNTER → 2023-07-02 | Outpatient (CLI) | payer MEDICARE, SELFPAY ==
[2023-07-02 13:59] LABS: Absolute Lymphocyte Count 1.69 X10^3/uL (0.83-4.51); Absolute Neutrophil Count 5.4 X10^3/uL (2.0-7.7); Basophil# 0.08 X10^3/uL; Basophil% 0.9 % (0-1); Eosinophil# 0.65 X10^3/uL; Eosinophils% 7.4 % (0-5); Hematocrit 29.3 % (37-47); Hemoglobin 8.5 g/dL (12.0-15.0); Lymphocyte # 1.69 X10^3/ul (0.83-4.51); Lymphocyte % 19.2 % (19-41); Mean Corpuscular Volume 82.8 fL (81-99); Mean Platelet Vol. 10.3 fl (6.2-12.0); Monocyte# 0.97 X10^3/uL; NRBC Flagged by Analyzer 0 % (0-5); Neutrophil # 5.38 X10^3/uL (2.7-7.7); Neutrophil % 61.2 % (47-70); Platelet Count 443 K/mm3 (150-450); RBC Distribution Width CV 13.5 % (11.6-14.6); Red Blood Count 3.54 M/mm3 (4.2-5.4); White Blood Count 8.8 K/mm3 (4.4-11.0)
[2023-07-02 14:26] LABS: ALB/GLOB Ratio 0.7 RATIO (0.9-2.4); AST(SGOT) 19 U/L (15-37); Alanine Aminotransfer ALT/SGPT 22 U/L (13-56); Albumin, Serum 2.8 g/dL (3.2-5.0); Alkaline Phosphatase 86 U/L (45-117); Anion Gap 3 (5-15); BUN 17 mg/dL (7-18); BUN/Creat Ratio 19.1 RATIO (10-20); Calcium,Total 9.1 mg/dL (8.5-10.1); Chloride 110 mmol/L (98-107); Creatinine, Serum 0.89 mg/dL (0.55-1.02); EST Glomerular Filtration Rate 65 mL/min (>60); Est Glom Filt Rate - Afr Amer 79 mL/min (>60); Globulin 3.8 g/dL (2.2-4.2); Glucose 133 mg/dL (74-106); Potassium 3.6 mmol/L (3.5-5.1); Protein, Total 6.6 g/dL (6.4-8.2); Sodium Level 140 mmol/L (136-145)
[2023-07-02 14:49] LABS: Hepatitis B Surface Antibody Reactive; Hepatitis B Surface Antigen Non-Reactive (Nonreactive); Vitamin B12 442 pg/mL (211-911); Vitamin D,25 Hydroxy 30.1 ng/mL
--- OUTSIDE RECORDS SUMMARY | 2023-07-02 15:22 | XMS RPT_ITS | CCD ---
Author Name Unknown Address [address] [place] [address] Organization [facility] Care Team Providers Care Environmental Sampling Technician Name Role Phone Paulino DRAW BENCH OPERATOR, Maricarmen Lay Unavailable [phone] GERRY Shirley RN, Carmen Fleming Unavailable Unavailabl e KARISHMA HOANG, CRISTIANA Bean Primary Care Physician Unavailable Primary Care Provider Unavailabl e Unavailable Primary Care Provider Unavailabl e Medications Current Medications Medication Drug Class(es) Dates Sig (Normalized) Sig (Original) atorvastatin 10 mg oral tablet (7 sources) HMG-CoA Reductase Inhibitor Start: 10-19-2021 atorvastatin 10 mg oral tablet Dose : 10 mg = 1 tab(s), Oral, qDay, # 90 tab(s), 3 Refill(s), Pharmacy: [facility], 162, cm, 10/19/21 10:09:00 EDT, Height, kg, 10/19/21 10:09:00 EDT, Dosing Weight Start Date: 10/19/21 Status: Ordered Completed/Discontinued Medications Medication Drug Class(es) Dates Sig (Normalized) Sig (Original) ascorbic acid 500 mg oral tablet (2 sources) Vitamin C Start: 02-21-2006 VITAMIN C 500 MG TAB time release, take as needed for colds. 0 02/21/2006 Active Problems Active Problems Problem Classification Problem Date Documented Da te Episodic/Chronic Disorders of lipid metabolism (2 sources) Hypercholesterolemia; Translations: [Pure hypercholesterolemia, unspecified] Onset: 2 06-03-2012 Chronic Esophageal disorders (2 sources) Gastroesophageal reflux disease; Translations: [Gastro-esophageal reflux disease without esophagitis] Onset: 2 06-03-2012 Chronic Immunizations and screening for infectious disease (3 sources) Exposure to communicable disease 08-31-2020 Episodic Other ear and sense organ disorders (1 source) Impacted cerumen in left ear; Translations: [Impacted cerumen, left ear] Episodic Other ear and sense organ disorders (1 source) Impacted cerumen of bilateral ears; Translations: [Impacted cerumen, bilateral] 02-07-2023 Episodic Other gastrointestinal disorders (3 sources) Abdominal bloating 08-31-2020 Episodic Other gastrointestinal disorders (3 sources) Diarrhea 08-31-2020 Episodic Unclassified (1 source) Screening mammography ; Translations: [Encounter for screening mammogram for malignant neoplasm of breast] Onset: 7 02-13-2017 Unclassified (1 source) Gynecologic examination ; Translations: [Encounter for gynecological examination (general) (routine) without abnormal findings] Onset: 7 02-13-2017 Past or Other Problems Problem Classification Problem Date Documented Date Episodic/Chronic Other connective tissue disease (2 sources) History of osteopenia; Translations: [Personal history of other diseases of the musculoskeletal system and connective tissue] Onset: 02-13-2017 02-13-2017 Episodic Other non-epithelial cancer of skin (2 sources) Intraepidermal squamous carcinoma of face; Translations: [Carcinoma in situ of skin of unspecified part of face] Onset: 06-03-2012 06-03-2012 Episodic Unclassified (2 sources) Asymptomatic menopausal state; Translations: [Asymptomatic menopausal state] Onset: 02-13-2017 02-13-2017 Episodic Results Test Name Value Interpretation Reference Range Facil ity Vital Signs Date Time Vital Sign Value Performing Clinician Facility 02-07-2023 16:43-0400 Body temperature 97.9 [degF] John Sr APRN.CNP Work Phone: [facility] 02-07-2023 16:43-0400 Body weight 81.74 kg John Sr APRN.CNP Work Phone: [facility] 02-07-2023 16:43-0400 Diastolic blood pressure 80 mm[Hg] John Sr APRN.CNP Work Phone: [facility] 02-07-2023 16:43-0400 Heart rate 75 /min John Sr APRN.CNP Work Phone: [facility] 02-07-2023 16:43-0400 Respiratory rate 21 /min John Sr ROOM SERVICE RUNNER.MAJOR ACCOUNT REPRESENTATIVE Work Phone: [facility] 02-07-2023 16:43-0400 SaO2% (BldA) [Mass fraction] 98 % John ROOM SERVICE RUNNER.MAJOR ACCOUNT REPRESENTATIVE Work Phone: [facility] 02-07-2023 16:43-0400 Systolic blood pressure 130 mm[Hg] John Sr ROOM SERVICE RUNNER.MAJOR ACCOUNT REPRESENTATIVE Work Phone: [facility] 03-28-2022 14:18-0400 Body temperature 97.9 [degF] Arias Barnes MD Work Phone: [facility] 03-28-2022 14:18-0400 Body weight 84.46 kg Arias Barnes MD Work Phone: [facility] 03-28-2022 14:18-0400 Diastolic blood pressure 80 mm[Hg] Arias Barnes MD Work Phone: [facility] 03-28-2022 14:18-0400 Heart rate 73 /min Arias Barnes MD Work Phone: [facility] 03-28-2022 14:18-0400 Respiratory rate 18 /min Arias Barnes MD Work Phone: [facility] 03-28-2022 14:18-0400 SaO2% (BldA) [Mass fraction] 96 % Arias Barnes MD Work Phone: [facility] 03-28-2022 14:18-0400 Systolic blood pressure 140 mm[Hg] Arias Barnes MD Work Phone: [facility] 02-13-2017 09:34-0400 BMI (Body Mass Index) 31.13 kg/m2 Maricarmen Bob NP [facility] 02-13-2017 09:34-0400 Body Temperature 98.3 [degF] Maricarmen Bob NP [facility] 02-13-2017 09:34-0400 Body Temperature 98.29 [degF] Maricarmen Bob NP [facility] 02-13-2017 09:34-0400 BP Diastolic 79 mm[Hg] Maricarmen Bob DRAW BENCH OPERATOR [facility] 02-13-2017 09:34-0400 BP Systolic 134 mm[Hg] Maricarmen Paulino DRAW BENCH OPERATOR [facility] 02-13-2017 09:34-0400 Height 163.83 cm Maricarmen Bob NP [facility] 02-13-2017 09:34-0400 Pulse (Heart Rate) 86 /min Maricarmen Bob NP [facility] 02-13-2017 09:34-0400 Respiratory Rate 16 /min Maricarmen Bob DRAW BENCH OPERATOR [facility] 02-13-2017 09:34-0400 Weight 83.55 kg Maricarmen Bob DRAW BENCH OPERATOR [facility] Encounters Encounter Date Encounter Type Care Provider Facility Start: 02-07-2023 End: 02-07-2023 ambulatory Facility:[facility] Start: 02-07-2023 End: 02-07-2023 Patient encounter procedure John Sr APRN.CNP Work Phone: [facility] Procedures Date Procedure Procedure Detail Performing Clinician Start: 02-13-2017 Gynecologic examination Routine gynecological examination Carmen Shirley RN RN Start: 02-13-2017 End: 02-13-2017 Pelvic & Breast Exam (Medicare) Maricarmen Bob NP Work Phone: Start: 02-13-2017 Screening mammography Mammogram yearly screening Carmen Shirley RN RN Start: 02-22-2001 Endometrial biopsy CRISTIANA SCHWARZ MD Plan of Treatment Date Care Activity Detail Author Start: 02-22-2023 Influenza vaccination INFLUENZA (#1) [facility] Start: 07-09-2022 COVID-19 VACCINE (6 - Moderna series) COVID-19 VACCINE (6 - Moderna series) [facility] Start: 06-24-2022 ADVANCE DIRECTIVE DISCUSSION ADVANCE DIRECTIVE DISCUSSION [facility] Start: 06-24-2022 DEPRESSION ASSESSMENT DEPRESSION ASSESSMENT [facility] Start: 06-24-2021 ADVANCE DIRECTIVE DISCUSSION ADVANCE DIRECTIVE DISCUSSION [facility] Start: 06-24-2021 DEPRESSION ASSESSMENT DEPRESSION ASSESSMENT [facility] Start: 08-31-2017 DIABETES SCREEN DIABETES SCREEN [facility] Start: 02-13-2017 End: 02-13-[address] [facility] Start: 02-13-2017 End: 02-13-2017 DEXA scan DEXA scan [facility] Start: 02-13-2017 End: 02-13-2017 Mammogram, screening Mammogram, Screening, both breasts [facility] Start: 2011 PNEUMOCOCCAL: 65+ (1 - PCV) PNEUMOCOCCAL: 65+ (1 - PCV) [facility] Start: 01-02-1996 SHINGRIX VACCINE (1 of 2) SHINGRIX VACCINE (1 of 2) [facility] Start: 1965 Urine microalbumin profile DTAP,TDAP,TD (1 - Tdap) [facility] Removal impacted cer umen irrigation/lvg unilat AMBULATORY EAR LAVAGE/IRRIGATION Procedures Routine Impacted cerumen of left ear Ordered: 03/28/2022 [facility] Work Phone: Immunizations Immunization Date Immunization Notes Care Provider Katharina dhillon 04-24-2021 SARS-CoV-2 (COVID-19 ) mRNA-1273 vaccine CRISTIANA SCHWARZ MD [facility] 03-27-2021 influenza virus vaccine, unspecified formulation CRISTIANA SCHWARZ MD [facility] 08-26-2020 SARS-CoV-2 (COVID-19 ) mRNA-1273 vaccine CRISTIANA SCHWARZ MD [facility] 07-27-2020 SARS-CoV-2 (COVID-19 ) mRNA-1273 vaccine CRISTIANA SCHWARZ MD [facility] 03-17-2020 influenza virus vaccine, unspecified formulation CRISTIANA SCHWARZ MD [facility] Payers Date Payer Category Payer Medicare A[employer]NA MEDICARE A ETNA MEDICARE PPO [id number] 2021-Present [phone] [address] [place] [address] PPO [id number] 2021 Medicare [id number] Social History Date Type Detail Facility Start: 05-29-2011 End: 08-06-2019 Never smoked tobacco (finding) [facility] Sex Assigned At [facility] Start: 05-29-2011 Tobacco use and exposure Smokeless tobacco non-user [facility] Start: 03-28-2022 End: 02-07-2023 Alcohol intake Current non-drinker of alcohol (finding) [facility] Start: 1945 Sex Assigned At Not on file [facility] Start: 03-18-2022 End: 03-28-2022 Exposure to SARS-CoV-2 (event) Not sure [facility] Work Phone: Start: 05-29-2020 End: 02-07-2023 History of Social function [facility] Start: 05-29-2020 End: 02-07-2023 Tobacco use panel [facility] National Score (1-100), lower number is lower risk Not on file [facility] Progress note 02-07-2023 Note Date & Type Note Facility 02-07-2023 Note HNO ID: [id number] Author: John Sr APRN.MAJOR ACCOUNT REPRESENTATIVE Service: ? Author Type: Nurse Practitioner Type: Progress Notes Filed: 02/07/2023 5:52 PM Note Text: Subjective HPI HPI Emerson Mccullough is a 78 year old female who presents today for CC of right ear clogged. This started 2 weeks ago. Has tried nothing for relief. Symptoms are worsened by nothing. Risk factors hx of cerumen impaction. 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 MEDICATIONS aspirin, enteric coated (ASPIRIN, ENTERIC COATED) 81 mg EC tablet Take 81 mg by mouth once daily. GLUC/SAM-MSM#2/C/D3/LULU/BORN ([id number] WITH VIT D ORAL) Take by mouth. RANITIDINE 75 MG TAB as needed LIPITOR 10 MG TAB Take one(1) tablet daily. CALCIUM 600 + D 600 MG-125 UNIT TAB Take one(1) tablet daily. DAILY MULTIVITAMIN TAB with lutein Take one(1) tablet daily. VITAMIN C 500 MG TAB time release, take as needed for colds. FAMILY HISTORY Problem Relation Age of Onset Coronary Artery Disease Father Diabetes Mother went off her diabetes meds at the age of 90, no longer diabetic other (macular degeneration [Other]) Mother Cancer Paternal Aunt breast other (non-hodgkin's lymphoma [Other]) Son Social History Tobacco Use Smoking status: Never Smokeless tobacco: Never Substance Use Topics Alcohol use: No Drug use: No ROS Objective Blood pressure 130/80, pulse 75, temperature 36.6 ?C (97.9 ?F), resp. rate 21, weight 81.7 kg (180 lb 3.2 oz), SpO2 98 %. Physical Exam Constitutional: General: She is not in acute distress. Appearance: She is not toxic-appearing or diaphoretic. HENT: Head: Normocephalic and atraumatic. Right Ear: Hearing and external ear normal. Left Ear: Hearing and external ear normal. Ears: Comments: Initially unable to see bilat tm d/t cerumen impaction. Procedure: Provider/curette/alligator forceps And Nurse/lavage After procedure bilat canal clear and bilat tm normal Pulmonary: Effort: Pulmonary effort is normal. No accessory muscle usage or respiratory distress. Neurological: Mental Status: She is alert and oriented to person, place, and time. ASSESSMENT/PLAN: 1. Bilateral impacted cerumen - ICD9: 380.4, ICD10: H61.23 Successful lavage and curratage of bilat ears Discussed proper ear hygiene F/u for continued or new s/s - AMBULATORY EAR LAVAGE/IRRIGATION John Sr APRN.ANGELA [facility] History of Present illness Narrative 02-07-2023 John Sr APRN.ANGELA - 02/07/2023 4:55 PM EDT Note Date & Type Note Facility 02-07-2023 History of Presen t illness Narrative Subjective HPI HPI Emerson Mccullough is a 78 year old female who presents today for CC of right ear clogged. This started 2 weeks ago. Has tried nothing for relief. Symptoms are worsened by nothing. Risk factors hx of cerumen impaction. 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 MEDICATIONS aspirin, enteric coated (ASPIRIN, ENTERIC COATED) 81 mg EC tablet Take 81 mg by mouth once daily. GLUC/SAM-MSM#2/C/D3/LULU/BORN ([id number] WITH VIT D ORAL) Take by mouth. RANITIDINE 75 MG TAB as needed LIPITOR 10 MG TAB Take one(1) tablet daily. CALCIUM 600 + D 600 MG-125 UNIT TAB Take one(1) tablet daily. DAILY MULTIVITAMIN TAB with lutein Take one(1) tablet daily. VITAMIN C 500 MG TAB time release, take as needed for colds. FAMILY HISTORY Problem Relation Age of Onset Coronary Artery Disease Father Diabetes Mother went off her diabetes meds at the age of 90, no longer diabetic other (macular degeneration [Other]) Mother Cancer Paternal Aunt breast other (non-hodgkin's lymphoma [Other]) Son Social History Tobacco Use Smoking status: Never Smokeless tobacco: Never Substance Use Topics Alcohol use: No Drug use: No ROS Objective Blood pressure 130/80, pulse 75, temperature 36.6 C (97.9 F), resp. rate 21, weight 81.7 kg (180 lb 3.2 oz), SpO2 98 %. Physical Exam Constitutional: General: She is not in acute distress. Appearance: She is not toxic-appearing or diaphoretic. HENT: Head: Normocephalic and atraumatic. Right Ear: Hearing and external ear normal. Left Ear: Hearing and external ear normal. Ears: Comments: Initially unable to see bilat tm d/t cerumen impaction. Procedure: Provider/curette/alligator forceps And Nurse/lavage After procedure bilat canal clear and bilat tm normal Pulmonary: Effort: Pulmonary effort is normal. No accessory muscle usage or respiratory distress. Neurological: Mental Status: She is alert and oriented to person, place, and time. ASSESSMENT/PLAN: 1. Bilateral impacted cerumen - ICD9: 380.4, ICD10: H61.23 Successful lavage and curratage of bilat ears Discussed proper ear hygiene F/u for continued or new s/s - AMBULATORY EAR LAVAGE/IRRIGATION John Sr APRN.MAJOR ACCOUNT REPRESENTATIVE documented in this encounter [facility] Progress note 03-28-2022 Note Date & Type Note Facility 03-28-2022 Note HNO ID: [id number] Author: Arias Barnes MD Service: ? Author Type: Physician Type: Progress Notes Filed: 03/28/2022 2:44 PM Note Text: Patient presents with: Ear Problem: Left ear feels clogged x several days HPI: Feeling clogged left ear for a few days. Positive symptoms: clogged left ear, slight ringing, Negative symptoms: Cough, Sore throat, Earache, Sinus pressure, Nasal Congestion, Rhinorrhea, Post nasal drainage, Fever, dizziness, OTC: none PHx of cerumen impactions treated here - feels similar. MEDICATIONS: Current Outpatient Medications Medication Sig GLUC/SAM-MSM#2/C/D3/LULU/BORN ([id number] WITH VIT D ORAL) Take by mouth. RANITIDINE 75 MG TAB as needed LIPITOR 10 MG TAB Take one(1) tablet daily. CALCIUM 600 + D 600 MG-125 UNIT TAB Take one(1) tablet daily. DAILY MULTIVITAMIN TAB with lutein Take one(1) tablet daily. VITAMIN C 500 MG TAB time release, take as needed for colds. No current facility-administered medications for this visit. ALLERGIES: ALLERGIES No Known Allergies VITALS: BP 140/80 Pulse 73 Temp 36.6 ?C (97.9 ?F) (Tympanic) Resp 18 Wt 84.5 kg (186 lb 3.2 oz) SpO2 96% BMI 32.98 kg/m? PHYSICAL EXAM: GEN: Pleasant, in no acute distress. HEENT: PERRL, EOMI, conjunctiva clear Ears: Right canal clear. Left canal occluded by cerumen. TMs without erythema, bulge, or effusion after cerumen removal. Small adherent ribbon of debris removed with plastic cerumen hook after irrigation. Sinuses: non-tender frontal sinus, non-tender maxillary sinuses Throat: moist mucous membranes, no erythema, no exudate Neck: supple, no thyromegaly, no lymphadenopathy HEART: regular rate and rhythm, no murmurs LUNGS: clear to auscultation, no wheezes or crackles, no increased WOB ASSESSMENT/PLAN: 1. Impacted cerumen of left ear - ICD9: 380.4, ICD10: H61.22 Successful removal by staff water lavage. - AMBULATORY EAR LAVAGE/IRRIGATION Arias Barnes MD [facility] History of Present illness Narrative 03-28-2022 Arias Barnes MD - 03/28/2022 2:22 PM EDT Note Date & Type Note Facility 03-28-2022 History of Presen t illness Narrative Patient presents with: Ear Problem: Left ear feels clogged x several days HPI: Feeling clogged left ear for a few days. Positive symptoms: clogged left ear, slight ringing, Negative symptoms: Cough, Sore throat, Earache, Sinus pressure, Nasal Congestion, Rhinorrhea, Post nasal drainage, Fever, dizziness, OTC: none PHx of cerumen impactions treated here - feels similar. MEDICATIONS: Current Outpatient Medications Medication Sig GLUC/SAM-MSM#2/C/D3/LULU/BORN ([id number] WITH VIT D ORAL) Take by mouth. RANITIDINE 75 MG TAB as needed LIPITOR 10 MG TAB Take one(1) tablet daily. CALCIUM 600 + D 600 MG-125 UNIT TAB Take one(1) tablet daily. DAILY MULTIVITAMIN TAB with lutein Take one(1) tablet daily. VITAMIN C 500 MG TAB time release, take as needed for colds. No current facility-administered medications for this visit. ALLERGIES: ALLERGIES No Known Allergies VITALS: BP 140/80 Pulse 73 Temp 36.6 C (97.9 F) (Tympanic) Resp 18 Wt 84.5 kg (186 lb 3.2 oz) SpO2 96% BMI 32.98 kg/m PHYSICAL EXAM: GEN: Pleasant, in no acute distress. HEENT: PERRL, EOMI, conjunctiva clear Ears: Right canal clear. Left canal occluded by cerumen. TMs without erythema, bulge, or effusion after cerumen removal. Small adherent ribbon of debris removed with plastic cerumen hook after irrigation. Sinuses: non-tender frontal sinus, non-tender maxillary sinuses Throat: moist mucous membranes, no erythema, no exudate Neck: supple, no thyromegaly, no lymphadenopathy HEART: regular rate and rhythm, no murmurs LUNGS: clear to auscultation, no wheezes or crackles, no increased WOB ASSESSMENT/PLAN: 1. Impacted cerumen of left ear - ICD9: 380.4, ICD10: H61.22 Successful removal by staff water lavage. - AMBULATORY EAR LAVAGE/IRRIGATION Arias Barnes MD documented in this encounter [facility] Clinical Note 01-02-2022 Note Date & Type Note Facility 01-02-2022 Note ORIGINAL EXAMINATION: BONE DENSITOMETRY 01/02/2022 9:50 am TECHNIQUE: A bone density dual x-ray absorptiometry (DEXA) scan was performed of the lumbar spine and left hip on a [employer] System. COMPARISON: None. HISTORY: ORDERING SYSTEM PROVIDED HISTORY: Reason for Exam: Osteoporosis Screening Postmenopausal. FINDINGS: LUMBAR SPINE: The bone mineral density in the lumbar spine including the L1 through L4 levels is measured at 1.055 g/cm2, which corresponds to a T-score of 0.1. This is within the normal range by WHO criteria. HIP: The bone mineral density in the total hip is measured at 0.987 g/cm2 corresponding to a T-score of 0.4. This is within the normal range by WHO criteria. The bone mineral density of the femoral neck is measured at 0.797 g/cm2 corresponding to a T-score of -0.5. This is within the normal range by WHO criteria. IMPRESSION: Normal bone mineralization by WHO criteria. Interpreted by: Maricruz Hines Preliminary Report By: Maricruz Hines Electronically signed By Maricruz Hines Dictated Date: 01/02/2022 10:23:22 AM Prelim Date: 01/02/2022 10:24:50 AM Sign Date: 01/02/2022 10:24:50 AM Ordering Provider: CRISTIANA [facility] Clinical Note 01-02-2022 Note Date & Type Note Facility 01-02-2022 Note ORIGINAL EXAMINATION: BONE DENSITOMETRY 01/02/2022 9:50 am TECHNIQUE: A bone density dual x-ray absorptiometry (DEXA) scan was performed of the lumbar spine and left hip on a [employer] System. COMPARISON: None. HISTORY: ORDERING SYSTEM PROVIDED HISTORY: Reason for Exam: Osteoporosis Screening Postmenopausal. FINDINGS: LUMBAR SPINE: The bone mineral density in the lumbar spine including the L1 through L4 levels is measured at 1.055 g/cm2, which corresponds to a T-score of 0.1. This is within the normal range by WHO criteria. HIP: The bone mineral density in the total hip is measured at 0.987 g/cm2 corresponding to a T-score of 0.4. This is within the normal range by WHO criteria. The bone mineral density of the femoral neck is measured at 0.797 g/cm2 corresponding to a T-score of -0.5. This is within the normal range by WHO criteria. IMPRESSION: Normal bone mineralization by WHO criteria. Interpreted by: Maricruz Hines Preliminary Report By: Maricruz Hines Electronically signed By Maricruz Hines Dictated Date: 01/02/2022 10:23:22 AM Prelim Date: 01/02/2022 10:24:50 AM Sign Date: 01/02/2022 10:24:50 AM Ordering Provider: CRISTIANA SCHWARZ [facility] Evaluation + Plan note Note Date & Type Note Facility Evaluation + Plan note No data available for this section [facility] Evaluation note Note Date & Type Note Facility documented in this encounter [facility] Evaluation note Note Date & Type Note Facility documented in this encounter [facility] Discharge instructions Note Date & Type Note Facility Hospital Discharge instructions No data available for this section [facility] Summary Purpose Family History No Family History Records FoundNo Family History Records Found Advance Directives No Advanced Directives Records FoundNo Advanced Directives Records Found Additional Source Comments Care Team (unrecognized sect ion and content) Care Team Personnel Name: CRISTIANA SCHWARZ MD Position: P4 Physician - Primary Care Med Service: Active Provider Member Role: Primary Care Physician Address: Address: [address] [place] [address]- [place] Care Team Related Persons Name: JOLENEALEXANDRA SARA W Address: Home [address], [place] [id number] Address: Temporary [address], [place] [id number] Name: MIRIAN MCCULLOUGH Address: Home [address], [place] [id number] Address: Temporary [address], [place] [id number] INFORMATION SOURCE (unrecogn ized section and content) DATE CREATED AUTHOR AUTHOR'S ORGANMILTON ATION 02/08/2023 [facility] Source Comments (unrecognize d section and content) In the event this informatio n is protected by the Federal Confidentiality of Alcohol and Drug Abuse Patient Records regulations: The Federal rules restrict any use of the information to criminally investigate or prosecute any alcohol or drug abuse patient.[facility] event this information is protected by the Federal Confidentiality of Alcohol and Drug Abuse Patient Records regulations: The Federal rules restrict any use of the information to criminally investigate or prosecute any alcohol or drug abuse patient.[facility] Reason for Visit (unrecogniz ed section and content) Reason Comments Ear Problem Right ear clogged x 2 weeks FOR RECORDS PERTAINING TO PATIENTS WHO ARE OR HAVE BEEN ENROLLED IN A CHEMICAL DEPENDENCY/SUBSTANCEABUSE PROGRAM, SOME INFORMATION MAY BE OMITTED. This clinical summary was aggregated from multiple sources. Caution should be exercised in using it in the provision of clinical care. This summary normalizes information from multiple sources, and as a consequence, information in this document may materially change the coding, format and clinical context of patient data. In addition, data may be omitted in some cases. CLINICAL DECISIONS SHOULD BE BASED ON THE PRIMARY CLINICAL RECORDS. [facility]. provides no warranty or guarantee of the accuracy or completeness of information in this document.
[2023-07-04 13:07] LABS: Hepatitis B Core Ab Total Negative (Negative); QNTFERON TB Mitogen Value > 10.00 IU/mL (.); QNTFERON TB Nil Value 0 IU/mL (.); QNTFERON TB1+ Ag Value 0 IU/mL (.); QNTFERON TB2+ Ag Value 0 IU/mL (.); QNTIFERON TB Positive Criteria Negative (Negative)
== END | disposition home or self-care (01) ==
LOC: PAVLAB 13:31
PROVIDERS: PCP Internal Medicine
DX: K51.211 Ulcerative (chronic) proctitis with rectal bleeding (principal); K62.5 Hemorrhage of anus and rectum; R15.2 Fecal urgency; R19.7 Diarrhea, unspecified
CPT/HCPCS: 36415; 80053; 82306; 82607; 85025; 86140; 86480; 86704; 86706; 87340

== ENCOUNTER → 2023-08-26 | Outpatient (CLI) | payer MEDICARE, SELFPAY ==
[2023-08-26 16:59] LABS: Hematocrit 27.3 % (37-47); Hemoglobin 7.6 g/dL (12.0-15.0); Mean Corp Hgb Conc 27.8 g/dL (32-36); Mean Corpuscular Hgb 20.9 pg (27.0-32.0); Mean Platelet Vol. 9.4 fl (6.2-12.0); Platelet Count 649 K/mm3 (150-450); RBC Distribution Width CV 15.5 % (11.6-14.6); RBC Distribution Width SD 42.3 fl (35.1-43.9); Red Blood Count 3.64 M/mm3 (4.2-5.4); White Blood Count 10.5 K/mm3 (4.4-11.0)
[2023-08-26 18:38] LABS: ALB/GLOB Ratio 0.7 RATIO (0.9-2.4); AST(SGOT) 19 U/L (15-37); Alanine Aminotransfer ALT/SGPT 19 U/L (13-56); Albumin, Serum 2.6 g/dL (3.2-5.0); Alkaline Phosphatase 72 U/L (45-117); Anion Gap 3 (5-15); BUN 16 mg/dL (7-18); BUN/Creat Ratio 17.1 RATIO (10-20); Calcium,Total 8.8 mg/dL (8.5-10.1); Chloride 105 mmol/L (98-107); Creatinine, Serum 0.94 mg/dL (0.55-1.02); EST Glomerular Filtration Rate 61 mL/min (>60); Est Glom Filt Rate - Afr Amer 74 mL/min (>60); Globulin 3.6 g/dL (2.2-4.2); Glucose 121 mg/dL (74-106); Potassium 4.5 mmol/L (3.5-5.1); Protein, Total 6.2 g/dL (6.4-8.2); Sodium Level 137 mmol/L (136-145)
== END | disposition home or self-care (01) ==
LOC: LAB 16:37
PROVIDERS: PCP Internal Medicine; Referring Provider Internal Medicine; Visit Provider Internal Medicine
DX: K51.211 Ulcerative (chronic) proctitis with rectal bleeding (principal)
CPT/HCPCS: 36415; 80053; 85027; 86140

== ENCOUNTER → 2023-09-12 | Outpatient (CLI) | payer MEDICARE, SELFPAY ==
[2023-09-12 10:58] LABS: ALB/GLOB Ratio 0.8 RATIO (0.9-2.4); AST(SGOT) 25 U/L (15-37); Alanine Aminotransfer ALT/SGPT 25 U/L (13-56); Albumin, Serum 2.7 g/dL (3.2-5.0); Alkaline Phosphatase 79 U/L (45-117); Anion Gap 3 (5-15); BUN 11 mg/dL (7-18); BUN/Creat Ratio 13.3 RATIO (10-20); CRP < 2.90 mg/L (0.0-3.0); Calcium,Total 9.1 mg/dL (8.5-10.1); Chloride 108 mmol/L (98-107); Creatinine, Serum 0.83 mg/dL (0.55-1.02); EST Glomerular Filtration Rate 71 mL/min (>60); Est Glom Filt Rate - Afr Amer 86 mL/min (>60); Globulin 3.6 g/dL (2.2-4.2); Glucose 81 mg/dL (74-106); Potassium 4.1 mmol/L (3.5-5.1); Protein, Total 6.3 g/dL (6.4-8.2); Sodium Level 140 mmol/L (136-145)
[2023-09-12 11:05] LABS: Absolute Lymphocyte Count 0.38 X10^3/uL (0.83-4.51); Absolute Neutrophil Count 5.2 X10^3/uL (2.0-7.7); Basophil# 0.05 X10^3/uL; Basophil% 0.7 % (0-1); Eosinophil# 0.64 X10^3/uL; Eosinophils% 8.7 % (0-5); Hematocrit 27.5 % (37-47); Hemoglobin 7.5 g/dL (12.0-15.0); Lymphocyte # 0.38 X10^3/ul (0.83-4.51); Lymphocyte % 5.1 % (19-41); Mean Corp Hgb Conc 27.3 g/dL (32-36); Mean Corpuscular Hgb 20.1 pg (27.0-32.0); Mean Corpuscular Volume 73.7 fL (81-99); Monocyte# 1.04 X10^3/uL; Monocyte% 14.1 % (0-10); NRBC Flagged by Analyzer 0 % (0-5); Neutrophil # 5.22 X10^3/uL (2.7-7.7); Neutrophil % 70.7 % (47-70); POSITIVE DIFFERENTIAL YES; Platelet Count 582 K/mm3 (150-450); RBC Distribution Width CV 15.9 % (11.6-14.6); RBC Distribution Width SD 41.8 fl (35.1-43.9); Red Blood Count 3.73 M/mm3 (4.2-5.4); White Blood Count 7.4 K/mm3 (4.4-11.0)
[2023-09-19 21:07] LABS: Calprotectin, Stool 851 ug/g (0-120)
== END | disposition home or self-care (01) ==
LOC: PAVLAB 10:03
PROVIDERS: PCP Internal Medicine; Referring Provider Internal Medicine; Visit Provider Internal Medicine
DX: K51.211 Ulcerative (chronic) proctitis with rectal bleeding (principal)
CPT/HCPCS: 36415; 80053; 83993; 85025; 86140

== ENCOUNTER 2023-10-16 14:41 | Inpatient (IN) | payer MEDICARE, SELFPAY ==
[2023-10-16] VITALS (15 sets, daily range): BP systolic 137–188; BP diastolic 68–95; PULSE 68–97; RESP 12–18; TEMP 35.7–36.9; O2SAT 92–100; BMI 29.7
--- NOTE | 2023-10-16 15:22 | EDS_ITS ---
HPI History of Present Illness Chief Complaint: Abn Labs Narrative Narrative: 78-year-old female presenting with anemia. Her hemoglobin is 6.2 today. This has been trending downward. Patient states he used to follow with Dr. Torres and during a colonoscopy he noticed some inflammation of the colon and she was on steroids for several months however the inflammation continued. Patient was referred to Dr. Lance who is a GI physician in [facility]. She believes he is a [facility] physician. She states that she was diagnosed with ulcerative colitis for the first time last year. A Patient has been on immunosuppressants since last year. Patient is on Zeposia which had immunosuppressant she was recently on. It was noted that her hemoglobin was dropping. Her GI specialist felt that this could also be caused by the immune suppression drug she is on. He discontinued a couple of weeks ago. Patient states that she had a sigmoidoscopy performed by GI a couple of weeks ago and states that she believes she did not have any blood in her stool. Patient continues to trend downward. Her family does state that her skin is paler than normal. She denies any shortness of breath or lightheadedness. Patient denies any abdominal pain. She denies any black or bloody stools. She is not on any blood thinners. [facility] Medical History Alcohol use Arthritis Cancer Change in bowel habit Gastric reflux Heartburn High cholesterol Leg cramps Low iron Non-smoker Post-menopausal Ulcerative colitis Wears glasses Home Medications calcium carbonate (Calcium 600) 600 mg PO DAILY 11/21/21 [History Last Taken Unknown] glucosamine HCl 500 mg tablet 500 mg PO DAILY 11/21/21 [History Last Taken Unknown] multivitamin 1 tab PO DAILY 11/21/21 [History Last Taken Unknown] omega-3 fatty acids 1,000 mg capsule 1,000 mg PO DAILY 11/21/21 [History Last Taken Unknown] vitamins A,C,A-tzph-wyxmih 4,296 mcg-226 mg-90 mg capsule (PreserVision AREDS) 1 cap PO BID 04/15/23 [History Last Taken Unknown] Hydrocortisone 2.5%/lidocaine 5% suppository (cmpd) #30 ea 05/24/23 [Rx Last Taken Unknown] atorvastatin 10 mg tablet 10 mg PO DAILY #90 TABLETS 10/10/23 [Rx Last Taken Unknown] Allergy/AdvReac Type Severity Reaction Status Date / Time No Known Allergies Allergy Verified 10/16/23 14:43 Family History Father Heart disease Mother Diabetes Surgical History H/O tubal ligation Hx of colonoscopy Social History household members: none housing: house current occupational status: retired current occupation: teaching Smoking Status: Never smoker Electronic Cigarette Use: not used alcohol intake: current alcohol intake frequency: holidays/special occasions only substance use type: does not use what type of physical activity do you participate in: walking frequency: 3-4 times per week seatbelt use: always do you feel safe at home: Yes additional social history: ROS ROS ED Constitutional Constitutional ED: Denies chills, fever(s) or sweats Eyes Eyes: Denies blurry vision or change in vision ENT ENT ED: Denies ear pain or sore throat Cardiovascular Cardiovascular: Denies chest pain, palpitations or racing heartbeat Respiratory/Chest Respiratory/Chest: Denies cough, dyspnea or sputum Gastrointestinal Gastrointestinal: Denies abdominal pain, constipation, diarrhea, nausea or vomiting Genitourinary Genitourinary ED: Denies dysuria, hematuria or urinary frequency Musculoskeletal Musculoskeletal: Denies arthralgias, myalgias or neck pain Integumentary Denies abscess, Abrasions or rash Neurologic Neurologic: Denies headache(s), paresthesias or weakness Psychiatric Psychiatric: Denies anxiety, depression, suicidal ideation or suicidal thoughts Endocrine Endocrinology: Denies polydipsia or polyuria EXAM Physical Exam Const Vital Signs: 10/16/23 14:42 10/16/23 14:43 10/16/23 16:42 Temperature 96.2 F L 97.6 F L Temperature Source Temporal Temporal Pulse Rate 97 97 71 Respiratory Rate 12 14 16 Blood Pressure 188/89 H 188/89 H 137/84 H Blood Pressure Mean 122 122 101 Blood Pressure Source Pulse Ox 92 92 97 Oxygen Delivery Method Room Air Room Air Room Air 10/16/23 17:30 10/16/23 18:00 10/16/23 17:35 Temperature 98.2 F 98.0 F 98.0 F Temperature Source Oral Oral Oral Pulse Rate 69 68 72 Respiratory Rate 16 16 16 Blood Pressure 148/77 H 149/68 H 149/68 H Blood Pressure Mean 100 95 95 Blood Pressure Source Pulse Ox 100 100 100 Oxygen Delivery Method Room Air Room Air Room Air 10/16/23 17:50 10/16/23 20:06 Temperature 98.0 F 98.0 F Temperature Source Oral Oral Pulse Rate 72 72 Respiratory Rate 18 16 Blood Pressure 155/85 H 155/85 H Blood Pressure Mean 108 108 Blood Pressure Source Monitor Pulse Ox 100 100 Oxygen Delivery Method Room Air Positive well nourished General Appearance ED: NAD and pallor HEENT Reports moist mucous membranes Negative for trauma Eyes PERRL and EOMs intact bilaterally General Eye ED: Yes pale conjunctiva Neck no lymphadenopathy Chest Wall inspection of chest normal Resp normal respiratory effort Cardio regular rhythm GI normal to inspection, nondistended, normoactive bowel sounds, non-tender and non-distended Extremity normal to inspection Neuro oriented x3 and CN's II-XII intact bilaterally Sensorium / Orientation: alert Motor Exam: strength 5/5 throughout Psych mental status grossly normal Skin General Skin Exam: pallor MDM MDM MDM Narrative Medical decision making narrative: Patient presenting with anemia which is a fairly new problem. She denies black or bloody stools. She states been tested for occult blood in stool and had a sigmoidoscopy done a couple of weeks ago. She is also discontinued her Zeposia a couple of weeks ago as this was believed that could be causing a drop in her hemoglobin. Her hemoglobin is now lower than it was. Her hemoglobin was gone from 7 6, 7 5, to now 6.2. Differential includes upper GI bleed, lower GI bleed, ulcerative colitis, medication side effect, dehydration, anemia. CBC obtained assessment does not count, hemoglobin, platelets. CMP to assess liver function, renal function, electrolytes. Occult stool was obtained and this shows brown stool. There is no black or bloody stool. CBC shows normal blood cell count of 5.2. Hemoglobin 6.1 which is consistent with earlier. Her platelet count is 451. Renal function is normal. LFTs are normal. Patient typed, screened, crossmatch 2 units. Hemoccult was negative. Initially discussed the case with the medical services manager who recommended that I send the patient home and stated that she had spoke with Dr. Lance before he left the office and states that he is currently unreachable. She stated that this was his wishes for the patient to be discharged home although I could not speak to him. I requested to speak to another physician and I spoke with Dr. Garcia who did not give any insight in to patient's who did not give any insight and to patient's care as to whether to transfer or discharge her home. He stated that it would be based on my clinical judgment. We discussed the patient's lab work and the fact that she had a negative occult stool however that it is also possible that she have a GI bleed with a negative occult stool. He agreed with this. He again stated it was up to my clinical judgment as to whether she was hemodynamically and or need to be transferred. Given this I spoke with Dr. García. He recommended getting a couple of extra labs which include a ferritin, reticulocyte count, transferring. Ferritin was low at less than 5, reticulocyte count 1.73, transferrin pending. He also recommended CTA of the abdomen which was performed and did not show anything acute. Reviewed all these labs with Dr. García who is amenable to keeping the patient in the hospital and monitoring. Patient was discussed with the hospitalist for admission. Impression: 1. Anemia 2. History of ulcerative colitis Lab Data Labs: Laboratory Results - last 24 hr 10/16/23 10/16/23 15:15 16:57 WBC 5.2 RBC 3.25 L Hgb 6.1 L Hct 22.4 L MCV 68.9 L MCH 18.8 L MCHC 27.2 L RDW Std Deviation 40.1 RDW Coeff of Tj 16.1 H Plt Count 451 H MPV 9.7 Immature Gran % (Auto) 0.400 Neut % (Auto) 69.6 Lymph % (Auto) 11.6 L [place] % (Auto) 14.1 H Eos % (Auto) 3.7 Baso % (Auto) 0.6 Absolute Neuts (auto) 3.6 Absolute Lymphs (auto) 0.60 L Nucleated RBC % 0 Retic Count 1.73 H Immature Retic Fraction 11.00 Retic Hgb Equivalent 16.9 L Sodium 142 Potassium 4.1 Chloride 112 H Carbon Dioxide 27.0 Anion Gap 3 L BUN 13 Creatinine 0.79 Estim Creat Clear Calc 59.69 Est GFR (MDRD) Af Amer 90 Est GFR (MDRD) Non-Af 74 BUN/Creatinine Ratio 16.4 Glucose 121 H Calcium 8.7 Ferritin 5 L Total Bilirubin 0.20 AST 23 ALT 26 Alkaline Phosphatase 69 Total Protein 6.1 L Albumin 2.9 L Globulin 3.2 Albumin/Globulin Ratio 0.9 Urine Color Yellow Urine Clarity Clear Urine pH 6.5 Ur Specific Champion 1.010 Urine Protein Negative Urine Glucose (UA) Normal Urine Ketones Negative Urine Occult Blood Negative Urine Nitrite Negative Urine Bilirubin Negative Urine Urobilinogen Normal Ur Leukocyte Esterase 100 H Urine RBC 0 SEEN Urine WBC 0-5 SEEN Ur Squamous Epith Cells 0-5 SEEN Urine Bacteria 0 SEEN Urine Mucus 0 SEEN Blood Type A POSITIVE Antibody Screen NEGATIVE Crossmatch See Detail Radiography Diagnostic Testing: Clinical Impression(s) from Imaging Studies Abdomen/Pelvis CTA 10/16/23 17:04 IMPRESSION: No evidence for active GI bleeding. Cholelithiasis. Fecal retention. Electronically Signed: Ephraim Berg MD at 18:36 EDT , Discharge Plan Triage Chief Complaint: Abn Labs ED Provider: Pardeep Mcmahan Dx/Rx/DC Orders Prescriptions: No Action multivitamin Tablet 1 tab PO DAILY omega-3 fatty acids 1,000 mg capsule 1,000 mg PO DAILY calcium carbonate [Calcium 600] 600 mg calcium (1,500 mg) tablet 600 mg PO DAILY glucosamine HCl 500 mg tablet 500 mg PO DAILY Rx Instructions: administer with a meal PreserVision AREDS 4,296 mcg-226 mg-90 mg capsule 1 cap PO BID (DME) Hydrocortisone 2.5%/lidocaine 5% suppository (cmpd) Suppository See Rx Instructions .Route Qty: 30 0RF Rx Instructions: As directed atorvastatin 10 mg tablet 10 mg PO DAILY Qty: 90 1RF Primary Care Provider: Karolina Lamb Referrals: Karolina Lamb MD [Primary Care Provider] -
[2023-10-16 15:35] LABS: Absolute Neutrophil Count 3.6 X10^3/uL (2.0-7.7); Basophil# 0.03 X10^3/uL; Basophil% 0.6 % (0-1); Eosinophil# 0.19 X10^3/uL; Eosinophils% 3.7 % (0-5); Hematocrit 22.4 % (37-47); Hemoglobin 6.1 g/dL (12.0-15.0); Lymphocyte % 11.6 % (19-41); Mean Corp Hgb Conc 27.2 g/dL (32-36); Mean Corpuscular Hgb 18.8 pg (27.0-32.0); Mean Corpuscular Volume 68.9 fL (81-99); Mean Platelet Vol. 9.7 fl (6.2-12.0); Monocyte# 0.73 X10^3/uL; Monocyte% 14.1 % (0-10); NRBC Flagged by Analyzer 0 % (0-5); Neutrophil % 69.6 % (47-70); POSITIVE DIFFERENTIAL YES; Platelet Count 451 K/mm3 (150-450); RBC Distribution Width CV 16.1 % (11.6-14.6); RBC Distribution Width SD 40.1 fl (35.1-43.9); Red Blood Count 3.25 M/mm3 (4.2-5.4); White Blood Count 5.2 K/mm3 (4.4-11.0)
[2023-10-16 16:03] LABS: ALB/GLOB Ratio 0.9 RATIO (0.9-2.4); AST(SGOT) 23 U/L (15-37); Alanine Aminotransfer ALT/SGPT 26 U/L (13-56); Albumin, Serum 2.9 g/dL (3.2-5.0); Alkaline Phosphatase 69 U/L (45-117); Anion Gap 3 (5-15); BUN 13 mg/dL (7-18); BUN/Creat Ratio 16.4 RATIO (10-20); Calcium,Total 8.7 mg/dL (8.5-10.1); Chloride 112 mmol/L (98-107); Creatinine, Serum 0.79 mg/dL (0.55-1.02); EST Glomerular Filtration Rate 74 mL/min (>60); Est Glom Filt Rate - Afr Amer 90 mL/min (>60); Estimated Creatinine Clearance 59.69 ml/min; Globulin 3.2 g/dL (2.2-4.2); Glucose 121 mg/dL (74-106); Potassium 4.1 mmol/L (3.5-5.1); Protein, Total 6.1 g/dL (6.4-8.2); Sodium Level 142 mmol/L (136-145)
--- NOTE | 2023-10-16 17:04 | CT_ITS ---
INDICATION: g bleed EXAMINATION: CTA abdomen and pelvis - TECHNIQUE: Routine abdominal CT angiogram protocol was performed with IV contrast. MIP images provided. A radiation dose optimization technique was used for this scan. IV Contrast dosage and agent: Radiation dose DLP mGy / cm. COMPARISON: None. FINDINGS: Lung bases: Normal. Liver: Normal. No bile ductal dilatation. Gallbladder: Single gallstone.. Spleen: Normal. Adrenal gland: Normal. Kidneys: Normal. No hydronephrosis or stone formation. Pancreas:Normal. Bowel gas pattern: Evaluation of the GI tract is limited by absence of oral contrast. Moderate hiatal hernia. Cannot exclude stomach wall thickening. 3.9 cm duodenal diverticulum. No dilated loops of bowel or evidence for obstruction. Cannot exclude segmental thickening of the sosa of the small or large bowel. Cannot exclude enteritis or colitis. Moderate diffuse fecal retention. Diverticulosis without definite diverticulitis. Appendix is not seen. Free air: None. Free fluid: None. Pelvis: Pelvic organs: No mass lesion noted. Bone survey: No aggressive bony lesions. No acute fractures. Degenerative changes. Adenopathy: No significant pathologic adenopathy detected. Other: None. Vascular: Normal vascular anatomy, there is tortuous with no significant plaque or aneurysm. No significantly narrowed aortic branches. No extravasation of contrast to suggest active bleeding. CT/CTA Abd/Pelvis W/WO Contrast IMPRESSION: No evidence for active GI bleeding. Cholelithiasis. Fecal retention. Electronically Signed: Ephraim Berg MD at 18:36 EDT ,
[2023-10-16 17:08] LABS: Bacteria 0 SEEN /hpf (None Seen); Mucous, Urine 0 SEEN /hpf (<or=2+); Red Blood Cells-Urine 0 SEEN /hpf (0-5)
[2023-10-16 17:10] LABS: Color, Urine Yellow (Yellow); Glucose, Dipstick Normal (Normal); Ketone-Dipstick Negative (Negative); Leukocyte Esterase-Dipstick 100 /ul (Negative); Nitrite-Dipstick Negative (Negative); Occult Blood-Urine Negative /ul (Negative); Protein-Dipstick Negative (Negative); Urine Bilirubin Dipstick Negative (Negative); Urine Clarity Clear (Clear); Urine Urobilinogen Normal (Normal); Urine pH 6.5 (5.0 - 8.0)
[2023-10-16 17:16] LABS: Squamous Epithelial Cells - UA 0-5 SEEN /hpf (5-10); White Blood Cells 0-5 SEEN /hpf (0-5)
[2023-10-16 17:31] LABS: Platelet Count 477 K/mm3 (150-450); RET-HE 16.9 pg (30-35); Reticulocyte Count 1.73 % (0.5-1.5)
[2023-10-16 17:39] LABS: Ferritin 5 ng/mL (8-252)
--- NOTE | 2023-10-16 20:01 | HP.PCM.HOS_ITS ---
HPI - General General Date of Admission: 10/16/23 Date of Service: 10/16/23 Chief Complaint: Worsening anemia HPI Narrative EMERSON SALEH, is a 78 F who presented to [facility] ED on 10/16/2023 with worsening anemia noted on outpatient labs. Patient seen at bedside in the ED. Sitting up comfortably in bed, conversing normally, in no acute distress. Appears to have good energy, generally appears fairly well. Patient was initially diagnosed with ulcerative colitis/proctitis on colonoscopy in 07/2022. Was following with Dr. Torres but then was referred to a GI physician Dr. Willoughby with [facility], has been following there for the past several months. She was treated with steroids with a taper initially per Dr. Torres. She was then started on a UC-specific immunosuppresant called Zeposia by [facility]. It is an oral medication that she has been taking daily. States that she started this medication about 6 weeks ago or so. However, she was noted to have a worsening hemoglobin and Zeposia can be a contributor to anemia, so this was discontinued about 2 weeks ago. She had a sigmoidoscopy done about 2 weeks ago that she reports did not show any blood, however I was unable to review these records. States that she had repeat labs drawn since then with a progressively worsening hemoglobin level and she was sent to our ED for further evaluation. Patient states she has been having fairly normal bowel movements since starting Zeposia. She denies any black or bloody stools. Patient lives at home by herself and is generally very active, does everything around the home for herself without issue. She does report having some shortness of breath with exertion when walking around the block over the past few weeks. She otherwise denies any chest pain, abdominal pain, lightheadedness or dizziness. Denies any recent fevers or chills. She denies any hematuria or vaginal bleeding. No other acute concerns. Patient has been hemodynamically stable since arriving to the ED. Her hemoglobin was 6.1, MCV 68. Ferritin level was 5. Given patient's worsening hemoglobin and symptomatic anemia, patient was admitted for further management. [facility] Medical History Alcohol use Arthritis Cancer Change in bowel habit Gastric reflux Heartburn High cholesterol Leg cramps Low iron Non-smoker Post-menopausal Ulcerative colitis Wears glasses Home Medications calcium carbonate (Calcium 600) 600 mg PO DAILY 11/21/21 [History Last Taken 10/16/23] glucosamine HCl 500 mg tablet 500 mg PO DAILY 11/21/21 [History Last Taken 10/16/23] multivitamin 1 tab PO DAILY 11/21/21 [History Last Taken 10/16/23] omega-3 fatty acids 1,000 mg capsule 1,000 mg PO DAILY 11/21/21 [History Last Taken 10/16/23] vitamins A,C,V-snag-ephtfa 4,296 mcg-226 mg-90 mg capsule (PreserVision AREDS) 1 cap PO BID 04/15/23 [History Last Taken 10/16/23] Hydrocortisone 2.5%/lidocaine 5% suppository (cmpd) #30 ea 05/24/23 [Rx Last Taken Unknown] atorvastatin 10 mg tablet 10 mg PO DAILY #90 TABLETS 10/10/23 [Rx Last Taken 10/16/23] Allergy/AdvReac Type Severity Reaction Status Date / Time No Known Allergies Allergy Verified 10/16/23 14:43 Family History Father Heart disease Mother Diabetes Surgical History H/O tubal ligation Hx of colonoscopy Social History household members: none housing: house current occupational status: retired current occupation: teaching Smoking Status: Never smoker Electronic Cigarette Use: not used alcohol intake: current alcohol intake frequency: holidays/special occasions only substance use type: does not use what type of physical activity do you participate in: walking frequency: 3-4 times per week seatbelt use: always do you feel safe at home: Yes additional social history: ROS Constitutional Constitutional: Denies chills, fatigue, fever(s) or weakness Eyes Eyes: Denies change in vision Cardiovascular Cardiovascular: Denies chest pain, orthopnea or palpitations Respiratory/Chest Respiratory/Chest: Reports shortness of breath with exertion; Denies cough, shortness of breath at rest or wheezing Gastrointestinal Gastrointestinal: Denies abdominal pain, coffee ground emesis, constipation, diarrhea, hematemesis, hematochezia, loose stools, melena, nausea or vomiting Genitourinary Genitourinary: Denies dysuria or hematuria Musculoskeletal Musculoskeletal: Denies arthralgias or myalgias Neurologic Neurologic: Denies dizziness, focal weakness or headache(s) Vital Signs Vital Signs Vital Signs: 10/16/23 14:42 10/16/23 14:43 10/16/23 16:42 Temperature 96.2 F L 97.6 F L Temperature Source Temporal Temporal Pulse Rate 97 97 71 Respiratory Rate 12 14 16 Blood Pressure 188/89 H 188/89 H 137/84 H Blood Pressure Mean 122 122 101 Blood Pressure Source Pulse Ox 92 92 97 Oxygen Delivery Method Room Air Room Air Room Air 10/16/23 17:30 10/16/23 18:00 10/16/23 17:35 Temperature 98.2 F 98.0 F 98.0 F Temperature Source Oral Oral Oral Pulse Rate 69 68 72 Respiratory Rate 16 16 16 Blood Pressure 148/77 H 149/68 H 149/68 H Blood Pressure Mean 100 95 95 Blood Pressure Source Pulse Ox 100 100 100 Oxygen Delivery Method Room Air Room Air Room Air 10/16/23 17:50 Temperature 98.0 F Temperature Source Oral Pulse Rate 72 Respiratory Rate 18 Blood Pressure 155/85 H Blood Pressure Mean 108 Blood Pressure Source Monitor Pulse Ox 100 Oxygen Delivery Method Room Air Weight Weight: 78.471 kg Body Mass Index (BMI) 29.7 Physical Exam Const alert, oriented x3, no apparent distress and average body habitus Constitutional Narrative: Pleasant elderly female, appears younger than stated age, sitting up comfortably in bed, conversing normally, in no acute distress. General Appearance: cooperative and comfortable HEENT normocephalic, head/scalp atraumatic, hearing grossly normal bilaterally, nasal mucous membranes and turbinates normal and moist oral mucous membranes Eyes PERRL, EOMs intact bilaterally and conjunctivae normal Neck full ROM Chest inspection of chest normal Resp normal respiratory effort, normal air movement, no use of accessory muscles and clear to auscultation bilaterally Cardio regular rate, regular rhythm, no murmurs and peripheral pulses 2+ throughout GI normal to inspection, nondistended, normoactive bowel sounds, soft to palpation, non-tender and non-distended Back/Spine normal ROM Extremity normal to inspection, full ROM and no pedal edema Skin no rashes or lesions noted Neuro moves all extremities and no focal motor deficits Speech: speech normal Psych mental status grossly normal Results Lab / Micro Data 10/16/23 23:45 10/16/23 15:15 Labs: Laboratory Results - last 24 hr 10/16/23 15:15: WBC 5.2, RBC 3.25 L, Hgb 6.1 L, Hct 22.4 L, MCV 68.9 L, MCH 18.8 L, MCHC 27.2 L, RDW Std Deviation 40.1, RDW Coeff of Tj 16.1 H, Plt Count 451 H , MPV 9.7, Immature Gran % (Auto) 0.400, Neut % (Auto) 69.6, Lymph % (Auto) 11.6 L, [place] % (Auto) 14.1 H, Eos % (Auto) 3.7, Baso % (Auto) 0.6, Absolute Neuts (auto) 3.6, Absolute Lymphs (auto) 0.60 L, Nucleated RBC % 0, Retic Count 1.73 H , Immature Retic Fraction 11.00, Retic Hgb Equivalent 16.9 L, Sodium 142, Potassium 4.1, Chloride 112 H, Carbon Dioxide 27.0, Anion Gap 3 L, BUN 13, Creatinine 0.79, Estim Creat Clear Calc 59.69, Est GFR (MDRD) Af Amer 90, Est GFR (MDRD) Non-Af 74, BUN/Creatinine Ratio 16.4, Glucose 121 H, Calcium 8.7, Ferritin 5 L, Total Bilirubin 0.20, AST 23, ALT 26, Alkaline Phosphatase 69, Total Protein 6.1 L, Albumin 2.9 L, Globulin 3.2, Albumin/Globulin Ratio 0.9, Blood Type A POSITIVE, Antibody Screen NEGATIVE, Crossmatch See Detail 10/16/23 16:57: Urine Color Yellow, Urine Clarity Clear, Urine pH 6.5, Ur Specific Plain 1.010, Urine Protein Negative, Urine Glucose (UA) Normal, Urine Ketones Negative, Urine Occult Blood Negative, Urine Nitrite Negative, Urine Bilirubin Negative, Urine Urobilinogen Normal, Ur Leukocyte Esterase 100 H, Urine RBC 0 SEEN, Urine WBC 0-5 SEEN, Ur Squamous Epith Cells 0-5 SEEN, Urine Bacteria 0 SEEN, Urine Mucus 0 SEEN Micro: Microbiology 10/16/23 15:25 Stool Stool Occult Blood (BRIT) - Final Imaging Radiology Impression Abdomen/Pelvis CTA 10/16/23 17:04 IMPRESSION: No evidence for active GI bleeding. Cholelithiasis. Fecal retention. Electronically Signed: Ephraim Berg MD at 18:36 EDT , Assessment & Plan Assessment/Plan (1) Acute on chronic anemia: (2) Ulcerative proctitis: PLAN: Plan Patient is a 78-year-old female who presented [facility] ED on 10/16/2023 with worsening anemia noted on outpatient labs. 1. Acute on chronic anemia ? Admit under inpatient status to PCU. Hemoglobin 6.2 on admit, recheck 6.1. MCV 69. Previous baseline around 12 at the end of last year, noted to have hemoglobin 8.5 on 07/02/2023 and has steadily been worsening since then. Ferritin level of 5 noted on admit. Unclear etiology but very low ferritin would suggest blood loss as the etiology. New UC medication Zeposia prescribed by [facility] could also be contributing. S/p 2 units of packed red blood cells on admit with repeat hemoglobin 8.7. Trend daily CBC. Dr. García with GI consulted. N.p.o. at midnight for possible scopes tomorrow. 2. History of ulcerative colitis/proctitis ? Diagnosed by biopsy in 07/2022. Initially followed with Dr. Torres, and then was referred to [facility]. Last Dr. Torres office note was from 05/07/2023. Per this note, symptoms were refractory to initial treatment course of hydrocortisone enemas, then appeared to significantly improve with mesalamine enemas. However, the remission did not last and that is when referral to [facility] was made. Was on Zeposia as noted above starting about 6 weeks ago, then discontinued about 2 weeks ago due to worsening anemia. GI consulted as noted above. 3. Hyperlipidemia ? Continue home statin. DVT prophylaxis: SCDs CODE STATUS: Full code, verified Expected disposition: Home, TBD Total clinical time spent by myself addressing the patient's medical issues, reviewing all the data, and collaborating with patient's care team: 55 minutes. Charges/Coding Visit Charges Inpatient E&M: 05226 Init Hosp L2
[2023-10-16] MEDS: Atorvastatin Calcium 10 MG Tablet PO (22:06)
[2023-10-16 23:54] LABS: Absolute Lymphocyte Count 0.61 X10^3/uL (0.83-4.51); Absolute Neutrophil Count 5.3 X10^3/uL (2.0-7.7); Basophil# 0.05 X10^3/uL; Basophil% 0.7 % (0-1); Eosinophil# 0.24 X10^3/uL; Eosinophils% 3.3 % (0-5); Hemoglobin 8.7 g/dL (12.0-15.0); Lymphocyte # 0.61 X10^3/ul (0.83-4.51); Lymphocyte % 8.3 % (19-41); Mean Corpuscular Hgb 20.7 pg (27.0-32.0); Mean Corpuscular Volume 71.3 fL (81-99); Mean Platelet Vol. 10.1 fl (6.2-12.0); Monocyte# 1.09 X10^3/uL; Monocyte% 14.8 % (0-10); NRBC Flagged by Analyzer 0 % (0-5); Neutrophil # 5.34 X10^3/uL (2.7-7.7); Neutrophil % 72.6 % (47-70); Platelet Count 455 K/mm3 (150-450); RBC Distribution Width CV 17.9 % (11.6-14.6); RBC Distribution Width SD 45.7 fl (35.1-43.9); Red Blood Count 4.21 M/mm3 (4.2-5.4); White Blood Count 7.4 K/mm3 (4.4-11.0)
[2023-10-17] VITALS (9 sets, daily range): BP systolic 120–161; BP diastolic 62–77; PULSE 65–77; RESP 16–18; TEMP 36.4–36.9; O2SAT 94–98
[2023-10-17 05:46] LABS: Hematocrit 26.8 % (37-47); Hemoglobin 7.8 g/dL (12.0-15.0); Mean Corp Hgb Conc 29.1 g/dL (32-36); Mean Corpuscular Hgb 20.5 pg (27.0-32.0); Mean Corpuscular Volume 70.3 fL (81-99); Mean Platelet Vol. 10.2 fl (6.2-12.0); Platelet Count 410 K/mm3 (150-450); RBC Distribution Width CV 17.9 % (11.6-14.6); RBC Distribution Width SD 44.9 fl (35.1-43.9); Red Blood Count 3.81 M/mm3 (4.2-5.4); White Blood Count 5.2 K/mm3 (4.4-11.0)
--- NOTE | 2023-10-17 05:55 | EKG12_ITS ---
Test Reason : pre op Blood Pressure : / mmHG Vent. Rate : 072 BPM Atrial Rate : 072 BPM P-R Int : 136 ms QRS Dur : 072 ms QT Int : 394 ms P-R-T Axes : 057 -03 -03 degrees QTc Int : 431 ms Normal sinus rhythm Low voltage QRS Possible Inferior infarct (cited on or before 19-MAR-2010) Abnormal ECG Confirmed by REMBERTO HOANG, TALI ([id number]), editorial cartoonist JUAN ANTONIO SCHNEIDER ([id number]) on 10/21/2023 10:11:01 AM Referred By: Confirmed By:GREER SR MD
[2023-10-17 06:00] LABS: International Normalized Ratio 1.2; Prothrombin Time (Protime)PT. 14.9 SECONDS (11.7-14.9)
[2023-10-17 06:01] LABS: Partial Thromboplast Time 28.7 Seconds (24.1-36.2)
[2023-10-17 06:02] LABS: Anion Gap 3 (5-15); BUN 11 mg/dL (7-18); BUN/Creat Ratio 16.2 RATIO (10-20); Calcium,Total 8.3 mg/dL (8.5-10.1); Chloride 112 mmol/L (98-107); Creatinine, Serum 0.68 mg/dL (0.55-1.02); EST Glomerular Filtration Rate 89 mL/min (>60); Est Glom Filt Rate - Afr Amer 108 mL/min (>60); Estimated Creatinine Clearance 59.74 ml/min; Glucose 93 mg/dL (74-106); Potassium 4.1 mmol/L (3.5-5.1); Sodium Level 140 mmol/L (136-145)
[2023-10-17 06:06] LABS: AST(SGOT) 18 U/L (15-37); Alanine Aminotransfer ALT/SGPT 22 U/L (13-56)
[2023-10-17 09:50] LABS: Iron 14 ug/dL (50-170); Iron Binding Capacity,Total 307 ug/dL (250-450); PERCENT IRON SATURATION 4.6 % (15.0-55.0)
[2023-10-17] MEDS: Lactated Ringers 1,000 ML 15 ML IV (11:45)
--- NOTE | 2023-10-17 12:30 | IMM_PTH ---
PATIENT: MEERSON SALEH LOC: [facility] U#:[id number] AGE/SX: 78/F ROOM: [facility] RE10/17/[address]: Dr. Lucas Louise DO : 1945 BED: 1 DIS: 10/18/2023 SPEC #: [id number] RECD: 10/18/23 10:11 STATUS: SOUT REQ #: [id number] RYAN: 10/17/23 12:[address]: Remigio García DEPT: IMMUNOHISTOCHEMISTRY RECD BY: Abrahan Salmon ENTERED: 10/18/23 10:11 SP TYPE: IMMUNO OTHR DR: MD Dr. Shyam Turner, DO Dr. Lucas Louise DO Tissues: B - Stomach, NOS Procedures: H Pylori (initial) Comments: @ Ordering doctor for H.PYLORI edited from to @ by SHOSHANA at 10/18/23 1012 @ Submitting doctor edited from to @ by SHOSHANA at 10/18/23 1012 PHYSICIAN & INSTITUTION [place] [id number] SPECIMEN INFORMATION: Tissue Source: B- Gastric ulcer biopsy Clinical Info: Acute on chronic anemia, Ulcerative proctitis Specimen Number: [id number] CPT code: 77148 METHODOLOGY: Deparaffinized sections of prefer/formalin-fixed tissue or PAP/DQ stained slides are incubated with monoclonal/polyclonal antibodies/oligonucleotide probes. Localization is made via biotin free immunoperoxidase method. Appropriate controls are performed and reacted as expected. Results on target cell population are indicated in the following table: RESULTS: ANTIBODY / CLONE RESULT Block B H Pylori (polyclonal) negative These tests were developed and their performance characteristics determined by [facility]. They may not have been cleared or approved by the U.S. Food and Drug Administration. The FDA has determined that such clearance or approval is not necessary. The above immunohistochemical/dualISH markers are ordered and reviewed by the Pathologist. INTERPRETATION: B. Gastric ulcer, biopsy: Negative for Helicobacter pylori organisms. DAMARIS/ 10/18/2023
--- NOTE | 2023-10-17 12:30 | EGD_PTH ---
PATIENT: EMERSON SALEH LOC: [facility] U#:[id number] AGE/SX: 78/F ROOM: [facility] RE10/17/[address]: Dr. Lucas Louise, : 1945 BED: 1 DIS: 10/18/2023 SPEC #: [id number] RECD: 10/17/23 13:34 STATUS: HALLE GARCIA #: [id number] RYAN: 10/17/23 12:[address]: Remigio García DEPT: SURGICAL PATHOLOGY RECD BY: Yvon Antoine ENTERED: 10/17/23 14:02 SP TYPE: EGD BIOPSY OTHR DR: MD Dr. Shyam Turner, DO Dr. Lucas Louise, Tissues: A - Duodenum, NOS B - Gastric mucous membrane Procedures: Surgery Specimen Level IV Comments: @ Ordering doctor for SUIV edited from to @ elizabeth ANNA at 10/17/23 4753 @ Submitting doctor edited from to @ elizabeth ANNA at 10/17/23 1345 HEADER OPERATION: EGD, biopsy, electro hemostasis PRE-OP DIAGNOSIS: Acute on chronic anemia, ulcerative proctitis TISSUE SUBMITTED: A- Duodenum biopsy, B- Gastric ulcer biopsy MICROSCOPIC DIAGNOSIS A. Duodenum, biopsy: Fragments of duodenal mucosa with nonspecific chronic inflammation and Consuelo gland hyperplasia. B. Gastric ulcer, biopsy: Mild gastritis. See microscopic description and comment. DAMARIS/ 10/18/2023 COMMENT B. The results of immunohistochemistry for Helicobacter pylori will be reported separately ([id number]). MICROSCOPIC DESCRIPTION Slides are reviewed. The specimen shows fragments of gastric mucosa with chronic inflammatory cell infiltrates in the lamina propria consisting of lymphocytes and plasma cells, consistent with mild chronic gastritis. GROSS DESCRIPTION A. Received in fixative is one container labeled with the patient's name and designated Duodenum biopsy. The specimen consists of two irregular fragments of light dobbs soft tissue that in aggregate measure 0.8 x 0.4 x 0.1 cm. The specimen is totally submitted in one cassette. B. Received in fixative is one container labeled with the patient's name and designated Gastric ulcer biopsy. The specimen consists of one irregular fragment of light dobbs soft tissue that measures 0.6 x 0.2 x 0.1 cm. The specimen is totally submitted in one cassette. SJ/ 10/17/23 TC:3 CPT:67122r4
--- NOTE | 2023-10-17 12:35 | OP.EGD_ITS ---
Patient Name: Simran Mccullough Procedure Date: 10/17/2023 11:58 AM Date of : 1945 Age: 78 Procedure: Upper GI endoscopy Indications: Iron deficiency anemia Providers: Remigio García DO Medicines: Monitored Anesthesia Care Patient Profile: This is a 78 year old female. Refer to note in patient chart for documentation of history and physical. Patient has symptoms. Her most recent colonoscopy for biopsy. Complications: No immediate complications. Procedure: Pre-Anesthesia Assessment: - Prior to the procedure, a History and Physical was performed, and patient medications and allergies were reviewed. The patient is competent. The risks and benefits of the procedure and the sedation options and risks were discussed with the patient. All questions were answered and informed consent was obtained. Patient identification and proposed procedure were verified by the physician in the pre-procedure area. Mental Status Examination: alert and oriented. Airway Examination: normal oropharyngeal airway and neck mobility. Respiratory Examination: clear to auscultation. CV Examination: normal. Prophylactic Antibiotics: The patient does not require prophylactic antibiotics. Prior Anticoagulants: The patient has taken no anticoagulant or antiplatelet agents. ASA Grade Assessment: III - A patient with severe systemic disease. After reviewing the risks and benefits, the patient was deemed in satisfactory condition to undergo the procedure. The anesthesia plan was to use monitored anesthesia care (MAC). Immediately prior to administration of medications, the patient was re-assessed for adequacy to receive sedatives. The heart rate, respiratory rate, oxygen saturations, blood pressure, adequacy of pulmonary ventilation, and response to care were monitored throughout the procedure. The physical status of the patient was re-assessed after the procedure. After obtaining informed consent, the endoscope was passed under direct vision. Throughout the procedure, the patient's blood pressure, pulse, and oxygen saturations were monitored continuously. The Endoscope was introduced through the mouth, and advanced to the second part of duodenum. The upper GI endoscopy was accomplished without difficulty. The patient tolerated the procedure well. Scope In: 12:15:50 PM Scope Out: 12:26:46 PM Total Procedure Duration Time 0 hours 10 minutes 56 seconds Findings: Mucosal changes including ringed esophagus, longitudinal furrows and small-caliber esophagus were found in the entire esophagus. Biopsies were obtained from the proximal and distal esophagus with cold forceps for histology of suspected eosinophilic esophagitis. Verification of patient identification for the specimen was done. Estimated blood loss was minimal. A mild Schatzki ring was found at the gastroesophageal junction. The gastroesophageal flap valve was visualized endoscopically and classified as Hill Grade IV (no fold, wide open lumen, hiatal hernia present). Red blood was found in the cardia. Multiple localized erosions with stigmata of recent bleeding were found in the gastric fundus. Biopsies were taken with a cold forceps for histology. Verification of patient identification for the specimen was done. Estimated blood loss was minimal. Coagulation for hemostasis using heater probe was successful. Estimated blood loss was minimal. Biopsies were taken with a cold forceps for Helicobacter pylori testing. Verification of patient identification for the specimen was done. Estimated blood loss was minimal. The second portion of the duodenum was normal. Biopsies were taken with a cold forceps for histology. Verification of patient identification for the specimen was done. Estimated blood loss was minimal. Impression: - Esophageal mucosal changes consistent with eosinophilic esophagitis. - Mild Schatzki ring. - Gastroesophageal flap valve classified as Hill Grade IV (no fold, wide open lumen, hiatal hernia present). - Red blood in the cardia. - Gastric erosions with stigmata of recent bleeding. Biopsied. Treated with a heater probe. - Normal second portion of the duodenum. Biopsied. - Biopsies were taken with a cold forceps for evaluation of eosinophilic esophagitis. Recommendation: - [facility]. - Resume regular diet. - Continue present medications. - Await pathology results. - Repeat upper endoscopy for surveillance. - Use Protonix (pantoprazole) 40 mg PO BID for 1 year. - Ferrous sulfate 325mg twice daily with vitamin c 500mg Procedure Code(s): --- Professional --- 70739, 59, Esophagogastroduodenoscopy, flexible, transoral; with control of bleeding, any method 67484, 51, Esophagogastroduodenoscopy, flexible, transoral; with biopsy, single or multiple CPT copyright 2021 [employer]. All rights reserved. The codes documented in this report are preliminary and upon information technology architect review may be revised to meet current compliance requirements. Remigio García DO 10/17/2023 12:34:55 PM This report has been signed electronically. Number of Addenda: 0 Note Initiated On: 10/17/2023 11:58 AM
--- NOTE | 2023-10-17 12:35 | OP.CCLET_ITS ---
10/17/2023 Karolina Lamb Md Re : Upper GI endoscopy procedure for Simran Mccullough Dear Adonis This procedure was performed on September. My impressions and recommendations are as follows: Impressions : - Esophageal mucosal changes consistent with eosinophilic esophagitis. - Mild Schatzki ring. - Gastroesophageal flap valve classified as Hill Grade IV (no fold, wide open lumen, hiatal hernia present). - Red blood in the cardia. - Gastric erosions with stigmata of recent bleeding. Biopsied. Treated with a heater probe. - Normal second portion of the duodenum. Biopsied. - Biopsies were taken with a cold forceps for evaluation of eosinophilic esophagitis. Recommendations : - [facility]. - Resume regular diet. - Continue present medications. - Await pathology results. - Repeat upper endoscopy for surveillance. - Use Protonix (pantoprazole) 40 mg PO BID for 1 year. - Ferrous sulfate 325mg twice daily with vitamin c 500mg My findings are described in the full procedure note, which is enclosed. If I can be of further assistance, please feel free to contact me at . Sincerely, Remigio García, 10/17/2023 12:34:55 PM This report has been signed electronically.
[2023-10-17] MEDS: Sucralfate 1 GM Tablet PO ×2 (13:28→16:46)
[2023-10-17 14:15] LABS: Hematocrit 29.9 % (37-47); Hemoglobin 8.8 g/dL (12.0-15.0)
[2023-10-17] MEDS: Sodium Ferric Gluconat/Sucrose 250 MG in 0.9% Normal Saline (250mL Bag) 250 ML 135 MG IV (14:46)
[2023-10-17] MEDS: 0.9% Saline Lock 10 ML Syringe IV (14:48)
--- NOTE | 2023-10-17 19:59 | PCM.PN.HOSP ---
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 Gastroenterology wrote for the patient to have an iron infusion, I have also written tomorrow for the patient to have a repeat iron infusion. Objective Data Objective Data Vital Signs: Vital Signs Temp Pulse Resp BP Pulse Ox O2 Del Method 97.6 F L 65 16 132/75 H 97 Room Air 10/17/23 13:56 10/17/23 13:56 10/17/23 13:56 10/17/23 13:56 10/17/23 13:56 10/17/23 13:56 Oxygen Delivery Method Room Air Weight: 78.6 kg Body Mass Index (BMI) 29.7 Intake & Output: Intake and Output for Last 24 Hours 10/15/23 10/16/23 10/17/23 23:59 23:59 23:59 Intake Total 351 / 351 297 / 297 Balance 351 / 351 297 / 297 Lab / Micro Data 10/17/23 14:00 10/17/23 05:11 Labs: Laboratory Results - last 24 hr 10/16/23 15:15: Blood Type A POSITIVE, Antibody Screen NEGATIVE, Crossmatch See Detail 10/16/23 23:45: WBC 7.4, RBC 4.21, Hgb 8.7 L, Hct 30.0 L, MCV 71.3 L, MCH 20.7 L, MCHC 29.0 L D, RDW Std Deviation 45.7 H, RDW Coeff of Tj 17.9 H, Plt Count 455 H, MPV 10.1, Immature Gran % (Auto) 0.300, Neut % (Auto) 72.6 H, Lymph % (Auto) 8.3 L, Morris % (Auto) 14.8 H, Eos % (Auto) 3.3, Baso % (Auto) 0.7, Absolute Neuts (auto) 5.3, Absolute Lymphs (auto) 0.61 L, Nucleated RBC % 0 10/17/23 05:11: WBC 5.2, RBC 3.81 L, Hgb 7.8 L, Hct 26.8 L, MCV 70.3 L, MCH 20.5 L, MCHC 29.1 L, RDW Std Deviation 44.9 H, RDW Coeff of Tj 17.9 H, Plt Count 410, MPV 10.2, PT 14.9, INR 1.2, APTT 28.7, Sodium 140, Potassium 4.1, Chloride 112 H, Carbon Dioxide 25.0, Anion Gap 3 L, BUN 11, Creatinine 0.68, Estim Creat Clear Calc 59.74, Est GFR (MDRD) Af Amer 108, Est GFR (MDRD) Non-Af 89, BUN/Creatinine Ratio 16.2, Glucose 93, Calcium 8.3 L, Iron 14 L, TIBC 307, Iron Saturation 4.6 L, AST 18, ALT 22 10/17/23 14:00: Hgb 8.8 L, Hct 29.9 L Micro: Microbiology 10/16/23 15:25 Stool Stool Occult Blood (BRIT) - Final Physical Exam Const alert, oriented x3, no apparent distress, average body habitus and healthy appearing General Appearance: cooperative, well kempt and well developed Orientation / Consciousness: awake, oriented to person, oriented to place and oriented to time HEENT normocephalic, head/scalp atraumatic and moist oral mucous membranes Eyes PERRL, EOMs intact bilaterally and conjunctivae normal Neck supple, no JVD, thyroid normal and no carotid bruits General: trachea midline Resp normal respiratory effort, no retractions, no use of accessory muscles and clear to auscultation bilaterally Auscultation: Negative for rales, rhonchi or wheezes Cardio regular rate, regular rhythm, S1 normal heart sound, S2 normal heart sound, no murmurs, no rub and no gallops GI normal to inspection, nondistended, normoactive bowel sounds, soft to palpation, non-tender and non-distended Extremity no clubbing, cyanosis or edema Skin no rashes or lesions noted General Skin Exam: no breakdown Neuro oriented x3, CN's II-XII intact bilaterally, moves all extremities, no focal motor deficits and no sensory deficits noted Sensorium / Orientation: awake and alert Speech: speech normal Psych affect normal Assessment & Plan Assessment/Plan (1) Iron deficiency anemia: PLAN: Plan 1. Acute on chronic iron deficiency anemia-secondary to acute GI blood loss from distal esophageal ulceration requiring blood transfusion-patient remains on a PPI at this time and Carafate, gastroenterology is participating in her care. Again patient was given an iron infusion today, she will have a repeat infusion tomorrow. #2 ulcerative colitis-patient sees a rehabilitation therapy technician in the [place] area, she intends to follow-up with that rehabilitation therapy technician after she is discharged from the hospital #3 hyperlipidemia-patient is on atorvastatin Total clinical time spent by myself addressing the patient's medical issues, reviewing all of her data, and collaborating with patient's care team: 35-minute Charges/Coding Visit Charges Inpatient E&M: 68791 Subs Hosp L2
[2023-10-17] MEDS: Pantoprazole Sodium 40 MG Tablet PO (22:16)
[2023-10-17] MEDS: Atorvastatin Calcium 10 MG Tablet PO (22:16)
[2023-10-18 04:10] VITALS: BP 123/59; PULSE 66; RESP 16; TEMP 36.6; O2SAT 96
[2023-10-18 05:07] LABS: Transferrin 267 mg/dL (192-364)
[2023-10-18] MEDS: Sucralfate 1 GM Tablet PO (06:23)
[2023-10-18] MEDS: Calcium Carbonate 500 MG Tablet PO (08:06)
[2023-10-18] MEDS: Sodium Ferric Gluconat/Sucrose 250 MG in 0.9% Normal Saline (250mL Bag) 250 ML 135 MG IV (08:21)
[2023-10-18] MEDS: 0.9% Saline Lock 10 ML Syringe IV (08:23)
[2023-10-18 08:35] VITALS: BP 125/62; PULSE 68; RESP 17; TEMP 37; O2SAT 97
[2023-10-18] MEDS: Pantoprazole Sodium 40 MG Tablet PO (09:47)
--- NOTE | 2023-10-18 10:35 | CASEMGMT ---
RN CM Face to Face with patient for initial transition planning/care coordination assessment. RN CM introduced self and role at [facility]. Patient lying in bed, alert and oriented. Patient willing to participate in assessment and is able to answer all questions appropriately. Care providers, pharmacy, and demographics verified. PCP: Adonis Specialists: Alberto, lead recoverer; Hasting, FARMER [employer]GETABLE Preferred Pharmacy: [facility] Insurance: [employer] Prescription Benefit: yes Living Will/HPOA: yes Humberto BROWNEOK: son Living Arrangements: Patient lives alone in a single story home with 2 steps and grab bars. Patient is independent at home. Transportation: self, son DME/HHC: Patient has shower chair, raised toilet, grab bars. No denies previous HHC Or SNF Patient wishes to discharge home, denies need for home health at this time. Patient states she has no further needs or concerns at this time. CM to follow for discharge planning needs that may arise. Disposition Plan: Patient to discharge home with family support and follow up plans in place. Arelis HICKMAN, RN, CM
[2023-10-18 11:08] LABS: Hematocrit 28.7 % (37-47); Hemoglobin 8.2 g/dL (12.0-15.0)
--- NOTE | 2023-10-18 13:15 | PCM.DC ---
Discharge Instructions Diet Discharge Diet: No restrictions Activity Discharge Activity: Return to Normal Activity Weight Bearing Status: Full weight bearing Follow Up Care Test Results: Test results from this visit will be discussed in further detail at your follow-up appointment, if applicable. Discharge Plan Admission Admit Date/Time: 10/17/23 10:28 Primary Reason for Your Visit: anemia Attending Provider: Lucas Louise Primary Care Provider: Karolina Lamb Consulting Providers: Shyam Roldan Instructions Additional Instructions / Restrictions: Get mkic-nuf-hxapzvg ferrous sulfate 325 mg take 1 twice a day on empty stomach, it may cause constipation, you will have black stools Follow-up with your bone cooking operator, I recommend you get another CBC within 2 to 3 weeks Discharge Orders/Prescriptions Prescriptions: New sucralfate 1 gram Tablet 1 g PO BID@0700,1600 Qty: 60 0RF pantoprazole 40 mg Tablet,Delayed Release (Dr/Ec) 40 mg PO BID Qty: 60 0RF Continued multivitamin Tablet 1 tab PO DAILY omega-3 fatty acids 1,000 mg capsule 1,000 mg PO DAILY calcium carbonate [Calcium 600] 600 mg calcium (1,500 mg) tablet 600 mg PO DAILY glucosamine HCl 500 mg tablet 500 mg PO DAILY Rx Instructions: administer with a meal PreserVision AREDS 4,296 mcg-226 mg-90 mg capsule 1 cap PO BID (DME) Hydrocortisone 2.5%/lidocaine 5% suppository (cmpd) Suppository See Rx Instructions .Route Qty: 30 0RF Rx Instructions: As directed atorvastatin 10 mg tablet 10 mg PO DAILY Qty: 90 1RF Referrals / Follow Up: Karolina Lamb MD [Primary Care Provider] - Within 1 Month Disposition Disposition (needs filled in before D/C Order can be placed): Home, Self Care
--- NOTE | 2023-10-18 13:38 | DS.PCM_ITS ---
Providers Date of Admission: 10/17/23 Date of Discharge: 10/18/23 Primary Care Physician: Dr. Karolina Lamb MD Consultations 10/16/23 21:15 Consult: Gastroenterology Routine Consulting Provider: Mad[facility] Reason for Consult: worsening anemia, h/o UC EMERGENT Consult: No MD Notified: Yes Date Notified: 10/16/23 Time Notified: 20:42 Method of Notification: Text Reason For Visit: ANEMIA Diagnosis Discharge Diagnosis (1) Iron deficiency anemia: Status: Acute Code(s): D50.9 - Iron deficiency anemia, unspecified Plan 1. Acute on chronic iron deficiency anemia-secondary to acute GI blood loss from distal esophageal ulceration and gastric erosions requiring blood transfusion-patient remains on a PPI at this time and [place], gastroenterology is participating in her care. Again patient was given an iron infusion today, she will have a repeat infusion tomorrow. #2 ulcerative colitis-patient sees a machine engineer in the [place] area, she intends to follow-up with that machine engineer after she is discharged from the hospital #3 hyperlipidemia-patient is on atorvastatin Total clinical time spent by myself addressing the patient's medical issues, reviewing all of her data, and collaborating with patient's care team: 35-minute Medications at Discharge Home Medications calcium carbonate (Calcium 600) 600 mg PO DAILY 11/21/21 glucosamine HCl 500 mg tablet 500 mg PO DAILY 11/21/21 multivitamin 1 tab PO DAILY 11/21/21 omega-3 fatty acids 1,000 mg capsule 1,000 mg PO DAILY 11/21/21 vitamins A,C,N-fgoz-dzriio 4,296 mcg-226 mg-90 mg capsule (PreserVision AREDS) 1 cap PO BID 04/15/23 Hydrocortisone 2.5%/lidocaine 5% suppository (cmpd) #30 ea 05/24/23 atorvastatin 10 mg tablet 10 mg PO DAILY #90 TABLETS 10/10/23 pantoprazole 40 mg tablet,delayed release 40 mg PO BID #60 tabs 10/18/23 sucralfate 1 gram tablet 1 g PO BID@0700,1600 #60 tabs 10/18/23 cephalexin 500 mg capsule 500 mg PO Q6 #40 CAPSULES 10/19/23 Hospital Course Operations None Procedures Blood transfusion and EGD Summary of Care Provided Minutes Spent on Discharge: 31 Hospital Course: 78-year-old white female was seen in the emergency room at [facility] with complaints of worsening anemia noted on outpatient lab work. Patient has a history of ulcerative colitis which was diagnosed in 2022. Patient denied any black or bloody stools, workup in the emergency room included a hemoglobin which was 6.1, patient's ferritin level was 5, she was admitted to PCU and given 2 units of packed red blood cells and seen in consultation by gastroenterology. Gastroenterology performed an EGD which showed gastric erosions with stigmata of recent bleeding-this was treated with a heater probe, there is noted to be esophageal mucosal changes consistent with the eosinophilic esophagitis. Patient was given IV iron infusion during her hospital stay due to her iron deficiency anemia. On 10/18/2023, patient was seen and examined: On examination she appeared in good health and spirits, she does not appear to be in any distress. Vital signs as documented. Skin warm and dry and without overt rashes. Neck without JVD, thyroid appears normal, trachea is midline, neck is supple. Lungs clear, normal air movement was noted. Heart exam notable for regular rhythm, normal sounds and absence of murmurs, rubs or gallops. Abdomen unremarkable and without evidence of organomegaly, masses, or abdominal aortic enlargement, bowel sounds are present in all 4 quadrants, no abdominal tenderness was noted. Extremities nonedematous, no cyanosis was noted, no clubbing was noted. Neuro: Cranial nerves II through XII are grossly intact, no focal motor deficits were noted, sensation to light touch and pinprick is intact, motor exam 5/5 throughout. Psych: Patient is alert and oriented x3, she does not appear anxious or depressed, she does not appear agitated. On 10/18/2023, patient was seen and examined and felt to be in stable condition for discharge home. Weight / BMI Weight Weight: 78.6 kg Body Mass Index (BMI) 29.7 ABG / Lab / Microbiology Data 10/18/23 10:58 10/17/23 05:11 Laboratory: Laboratory Results - last 24 hr 10/16/23 17:27: Transferrin 267 10/17/23 14:00: Hgb 8.8 L, Hct 29.9 L 10/18/23 10:58: Hgb 8.2 L, Hct 28.7 L Microbiology: Microbiology 10/16/23 15:25 Stool Stool Occult Blood (BRIT) - Final D/C Instructions Discharge Diet: No restrictions Weight Bearing Status: Full weight bearing Meaningful Use Info Meaningful Use Meaningful Use Diagnoses (Choose all that apply): None applicable Ischemic Stroke Statin Dosing Therapy Reference: STATIN DOSE THERAPY REFERENCE: * Patients > 75 years receive moderate or high dose statin therapy. * Patients 75 years or YOUNGER should receive HIGH intensity statin dose unless contraindicated. You will be required to document reason for non-treatment if statin daily dose does not meet guidelines. HIGH DOSE STATIN THERAPY DAILY Atorvastatin > than or = to 40 mg Rosuvastatin > than or = to 20 mg Amlodipine + Atorvastatin > than or = to 2.5/40 mg Ezetimibe + Simvastatin 10/80 mg Simvastatin 80mg Discharge Plan Admission Admit Date/Time: 10/17/23 10:28 Primary Reason for Your Visit: anemia Attending Provider: Lucas Louise Primary Care Provider: Karolina Lamb Consulting Providers: Shyam Roldan Instructions Additional Instructions / Restrictions: Get [id number]-ltd-[id number] ferrous sulfate 325 mg take 1 twice a day on empty stomach, it may cause constipation, you will have black stools Follow-up with your machine engineer, I recommend you get another CBC within 2 to 3 weeks Discharge Orders/Prescriptions Prescriptions: New sucralfate 1 gram Tablet 1 g PO BID@0700,1600 Qty: 60 0RF pantoprazole 40 mg Tablet,Delayed Release (Dr/Ec) 40 mg PO BID Qty: 60 0RF Continued multivitamin Tablet 1 tab PO DAILY omega-3 fatty acids 1,000 mg capsule 1,000 mg PO DAILY calcium carbonate [Calcium 600] 600 mg calcium (1,500 mg) tablet 600 mg PO DAILY glucosamine HCl 500 mg tablet 500 mg PO DAILY Rx Instructions: administer with a meal PreserVision AREDS 4,296 mcg-226 mg-90 mg capsule 1 cap PO BID (DME) Hydrocortisone 2.5%/lidocaine 5% suppository (cmpd) Suppository See Rx Instructions .Route Qty: 30 0RF Rx Instructions: As directed atorvastatin 10 mg tablet 10 mg PO DAILY Qty: 90 1RF No Action cephalexin [cephalexin] 500 mg capsule 500 mg PO Q6 Qty: 40 0RF Referrals / Follow Up: Karolina Lamb MD [Primary Care Provider] - Within 1 Month Disposition Disposition (needs filled in before D/C Order can be placed): Home, Self Care Charges/Coding Visit Charges Inpatient E&M: 21793 Disch Hosp >30min
[2023-10-18 13:54] VITALS: BP 157/80; PULSE 74; RESP 16; TEMP 36.5; O2SAT 100
--- NOTE | 2023-10-18 14:24 | PHA.DC.MC.R ---
Pharmacy [facility] has performed discharge medication reconciliation and counseling for this patient. The patient's discharge medication list was reviewed for discrepancies and discrepancies were resolved. The patient was counseled on the following discharge medications and changes in medications for homegoing were reviewed. The Reason for Use, instructions for use, and potential side effects were reviewed for all new medications. The patient's questions regarding all of their medications were answered. 1. Pantoprazole 40 mg PO BID 2. Sucralfate 1 gram PO BID The patient was able to verbally demonstrate an understanding of their discharge medications. Medications at Discharge Home Medications calcium carbonate (Calcium 600) 600 mg PO DAILY 11/21/21 glucosamine HCl 500 mg tablet 500 mg PO DAILY 11/21/21 multivitamin 1 tab PO DAILY 11/21/21 omega-3 fatty acids 1,000 mg capsule 1,000 mg PO DAILY 11/21/21 vitamins A,C,H-tcna-rqktae 4,296 mcg-226 mg-90 mg capsule (PreserVision AREDS) 1 cap PO BID 04/15/23 Hydrocortisone 2.5%/lidocaine 5% suppository (cmpd) #30 ea 05/24/23 atorvastatin 10 mg tablet 10 mg PO DAILY #90 TABLETS 10/10/23 pantoprazole 40 mg tablet,delayed release 40 mg PO BID #60 tabs 10/18/23 sucralfate 1 gram tablet 1 g PO BID@0700,1600 #60 tabs 10/18/23
[2023-10-18 15:08] LABS: Deamidated Gliadin IgA 5 units (0-19); Deamidated Gliadin IgG 3 units (0-19); Endomysial Antibody IgA Negative (Negative); Immunoglobulin A 257 mg/dL (64-422); t-Transglutaminase IgA <2 U/mL (0-3)
== END 2023-10-18 15:14 | disposition home or self-care (01) | DRG 378 ==
LOC: ED 20:13 → PCU 20:45
PROVIDERS: Anesthesiology; Internal Medicine Gastroenterology; Admitting Provider Hospitalist; Emergency Provider Student in an Organized Health Care Education/Training Program; PCP Internal Medicine; Visit Provider Internal Medicine
PROC: 0DJ08ZZ Inspection of Upper Intestinal Tract, Via Natural or Artificial Opening Endoscopic (ICD-10-PCS; CPT 43235; principal; 2023-10-17 12:25)
DX: K25.4 Chronic or unspecified gastric ulcer with hemorrhage (principal); K22.10 Ulcer of esophagus without bleeding; K51.90 Ulcerative colitis, unspecified, without complications; K22.2 Esophageal obstruction; D50.9 Iron deficiency anemia, unspecified; E78.5 Hyperlipidemia, unspecified
CPT/HCPCS: 36415; 74174; 80048; 80053; 81001; 82274; 82728; 82784; 83516; 83540; 83550; 84450; 84460; 84466; 85014; 85018; 85025; 85027; 85045; 85610; 85730; 86255; 86850; 86900; 86901; 86920; 86922; 88305; 88342; 93005; 99284; J7040; J7050; J7120; P9016; Q9967; A4216; J2405; J2916

== ENCOUNTER → 2023-10-16 | Outpatient (CLI) | payer MEDICARE, SELFPAY ==
[2023-10-16 10:32] LABS: Absolute Lymphocyte Count 0.55 X10^3/uL (0.83-4.51); Absolute Neutrophil Count 4.2 X10^3/uL (2.0-7.7); Basophil# 0.04 X10^3/uL; Basophil% 0.7 % (0-1); Eosinophil# 0.23 X10^3/uL; Eosinophils% 3.8 % (0-5); Hematocrit 23.4 % (37-47); Hemoglobin 6.2 g/dL (12.0-15.0); Lymphocyte # 0.55 X10^3/ul (0.83-4.51); Lymphocyte % 9.2 % (19-41); Mean Corp Hgb Conc 26.5 g/dL (32-36); Mean Corpuscular Hgb 18.3 pg (27.0-32.0); Mean Platelet Vol. 10.1 fl (6.2-12.0); Monocyte# 0.98 X10^3/uL; Monocyte% 16.3 % (0-10); NRBC Flagged by Analyzer 0 % (0-5); Neutrophil # 4.18 X10^3/uL (2.7-7.7); Neutrophil % 69.7 % (47-70); POSITIVE DIFFERENTIAL YES; Platelet Count 485 K/mm3 (150-450); RBC Distribution Width CV 16.2 % (11.6-14.6); RBC Distribution Width SD 40.3 fl (35.1-43.9); Red Blood Count 3.39 M/mm3 (4.2-5.4)
== END | disposition home or self-care (01) ==
LOC: PAVLAB 10:18
PROVIDERS: PCP Internal Medicine; Referring Provider Internal Medicine; Visit Provider Internal Medicine
DX: K51.211 Ulcerative (chronic) proctitis with rectal bleeding (principal)
CPT/HCPCS: 36415; 85025

== ENCOUNTER 2023-10-19 08:29 | Emergency (ER) | payer MEDICARE, SELFPAY ==
[2023-10-19 08:30] VITALS: BP 180/84; PULSE 83; RESP 16; TEMP 36.4; O2SAT 100; BMI 29.7
--- NOTE | 2023-10-19 08:47 | EDS_ITS ---
HPI History of Present Illness Chief Complaint: Cellulitis Informant: patient Onset/Context/Timing Onset: Yesterday Context: Gradual Onset Timing: Continuous Quality: sore, warm, swollen Location: LUE IV site Current Severity: Moderate Maximum Severity: Moderate Associated Symptoms Associated Symptoms: none Narrative Narrative: 78-year-old female was just discharged yesterday afternoon after being admitted for blood transfusion. She had 2 IVs, 1 in either antecubital fossa. She states that they were not bothering her when she was discharged at around 1630 and the IVs were removed. She states around 2 hours after that she noticed that the 1 on the left started getting painful, swollen, red. This morning, it is more prominent. She is feeling well otherwise. [facility] Medical History Alcohol use Arthritis Cancer Change in bowel habit Gastric reflux Heartburn High cholesterol Leg cramps Low iron Non-smoker Post-menopausal Ulcerative colitis Wears glasses Home Medications calcium carbonate (Calcium 600) 600 mg PO DAILY 11/21/21 [History Last Taken 10/16/23] glucosamine HCl 500 mg tablet 500 mg PO DAILY 11/21/21 [History Last Taken 10/16/23] multivitamin 1 tab PO DAILY 11/21/21 [History Last Taken 10/16/23] omega-3 fatty acids 1,000 mg capsule 1,000 mg PO DAILY 11/21/21 [History Last Taken 10/16/23] vitamins A,C,P-nkug-lzeidn 4,296 mcg-226 mg-90 mg capsule (PreserVision AREDS) 1 cap PO BID 04/15/23 [History Last Taken 10/16/23] Hydrocortisone 2.5%/lidocaine 5% suppository (cmpd) #30 ea 05/24/23 [Rx Last Taken Unknown] atorvastatin 10 mg tablet 10 mg PO DAILY #90 TABLETS 10/10/23 [Rx Last Taken 10/16/23] pantoprazole 40 mg tablet,delayed release 40 mg PO BID #60 tabs 10/18/23 [Rx Last Taken Unknown] sucralfate 1 gram tablet 1 g PO BID@0700,1600 #60 tabs 10/18/23 [Rx Last Taken Unknown] cephalexin 500 mg capsule 500 mg PO Q6 #40 CAPSULES 10/19/23 [Rx Last Taken Unknown] Allergy/AdvReac Type Severity Reaction Status Date / Time No Known Allergies Allergy Verified 10/19/23 08:29 Family History Father Heart disease Mother Diabetes Surgical History H/O tubal ligation Hx of colonoscopy Social History household members: none housing: house current occupational status: retired current occupation: teaching Smoking Status: Never smoker Electronic Cigarette Use: not used alcohol intake: current alcohol intake frequency: holidays/special occasions only substance use type: does not use what type of physical activity do you participate in: walking frequency: 3-4 times per week seatbelt use: always do you feel safe at home: Yes additional social history: ROS ROS ED Constitutional Constitutional ED: Denies chills or fever(s) Musculoskeletal Musculoskeletal: Reports extremity pain; Denies neck pain Integumentary Reports rash; Denies Abrasions or wounds Neurologic Neurologic: Denies paresthesias or weakness EXAM Physical Exam Const Vital Signs: 10/19/23 08:30 10/19/23 08:50 Temperature 97.6 F L 97.5 F L Temperature Source Temporal Pulse Rate 83 75 Respiratory Rate 16 16 Blood Pressure 180/84 H 152/79 H Blood Pressure Mean 116 103 Pulse Ox 100 96 Oxygen Delivery Method Room Air Positive well nourished and well developed General Appearance ED: well developed and NAD Neck full ROM and supple Back/Spine normal ROM and normal to inspection Extremity Extremity Narrative: Swollen, erythematous with blanching present, tender area at the left and cubital fossa and just proximal to it without lymphangitic streaking. It is warm compared with surrounding tissues. There is no fluctuance. There may be a little induration at the IV site which appears to be the nidus. She can bend the elbow without any difficulty and straightened out without difficulty. Neuro oriented x3, no focal motor deficits and no sensory deficits noted Sensorium / Orientation: alert Psych mental status grossly normal and thought process normal Skin no wounds Skin Narrative: Focal red, swollen tender area left antecubital fossa, see above MDM MDM MDM Narrative Medical decision making narrative: I think this is most likely infection associated with the IV. The history is not consistent with infiltration of IV contents since this developed after the IV was removed and she had no issues in the hospital otherwise. This is more consistent with erysipelas/strep than it is with MRSA abscess at this time. I detect nothing drainable, clinically. I am starting her on cephalexin, discussed reasons to return otherwise follow-up after the weekend. She is comfortable with that plan. Discharge Plan Triage Chief Complaint: Cellulitis ED Provider: Gabriel Rob Dx/Rx/DC Orders Clinical Impression: Cellulitis of arm, left Instructions: Cellulitis Dc Prescriptions: New cephalexin [cephalexin] 500 mg capsule 500 mg PO Q6 Qty: 40 0RF No Action multivitamin Tablet 1 tab PO DAILY omega-3 fatty acids 1,000 mg capsule 1,000 mg PO DAILY calcium carbonate [Calcium 600] 600 mg calcium (1,500 mg) tablet 600 mg PO DAILY glucosamine HCl 500 mg tablet 500 mg PO DAILY Rx Instructions: administer with a meal PreserVision AREDS 4,296 mcg-226 mg-90 mg capsule 1 cap PO BID sucralfate 1 gram Tablet 1 g PO BID@0700,1600 Qty: 60 0RF pantoprazole 40 mg Tablet,Delayed Release (Dr/Ec) 40 mg PO BID Qty: 60 0RF (DME) Hydrocortisone 2.5%/lidocaine 5% suppository (cmpd) Suppository See Rx Instructions .Route Qty: 30 0RF Rx Instructions: As directed atorvastatin 10 mg tablet 10 mg PO DAILY Qty: 90 1RF Primary Care Provider: Karolina Lamb Referrals: Karolina Lamb MD [Primary Care Provider] - 3-5 Days if not improving Disposition Disposition: Home, Self Care
[2023-10-19 08:50] VITALS: BP 152/79; PULSE 75; RESP 16; TEMP 36.4; O2SAT 96
--- NOTE | 2023-10-19 09:07 | VDUE_ITS ---
Reason For Study: LT ARM PAIN Left Proximal Left jugular vein is spontaneous, widely patent, phasic, with no intraluminal echogenicity noted. Left subclavian vein is spontaneous, widely patent, phasic, with no intraluminal echogenicity noted. Left Arm Left axillary vein is spontaneous, patent, phasic, competent, compressible and demonstrates augmentation. Left brachial vein is compressible. Left cephalic vein is compressible. Left basilic vein is compressible above & below the elbow. Left medial elbow is swollen, red and warm to touch. Left basilic vein at elbow is NONCOMPRESSIBLE AND DILATED. VL/Venous Duplex US, Unilateral Interpretation Summary Superficial thrombophlebitis left basilic vein at the elbow. Thrombus is at the site of an indwelling IV No evidence for acute deep venous thrombosis left upper extremity Ordering Physician: Gabriel Rob Referring Physician: Karolina Lamb Performed By: Denae Mendoza, JANECS, RVT ???
[2023-10-19] MEDS: Cephalexin 250 MG Capsule 500 MG PO (09:13)
[2023-10-19 11:00] VITALS: BP 138/76; PULSE 84; RESP 16; TEMP 36.1; O2SAT 97
== END 2023-10-19 11:54 | disposition home or self-care (01) ==
PROVIDERS: Emergency Provider Emergency Medicine; PCP Internal Medicine; Visit Provider Emergency Medicine
DX: L03.114 Cellulitis of left upper limb (principal); I82.612 Acute embolism and thrombosis of superficial veins of left upper extremity; E78.00 Pure hypercholesterolemia, unspecified; Z79.899 Other long term (current) drug therapy; K21.9 Gastro-esophageal reflux disease without esophagitis; Z98.51 Tubal ligation status
CPT/HCPCS: 93971; 99282

== ENCOUNTER → 2023-11-01 | Outpatient (CLI) | payer MEDICARE, SELFPAY ==
[2023-11-01 08:37] LABS: Hematocrit 40.2 % (37-47); Mean Corp Hgb Conc 27.4 g/dL (32-36); Mean Corpuscular Volume 80.4 fL (81-99); POSITIVE MORPHOLOGY YES; Platelet Count 438 K/mm3 (150-450); RBC Distribution Width SD 70.5 fl (35.1-43.9); White Blood Count 6.3 K/mm3 (4.4-11.0)
[2023-11-01 08:50] LABS: Scan Indicated on CBC? Y/N YES- FLAGS NOTED
== END | disposition home or self-care (01) ==
LOC: LAB 08:24
PROVIDERS: PCP Internal Medicine; Referring Provider Internal Medicine; Visit Provider Internal Medicine
DX: K51.211 Ulcerative (chronic) proctitis with rectal bleeding (principal); K22.10 Ulcer of esophagus without bleeding
CPT/HCPCS: 36415; 85027

== ENCOUNTER → 2023-11-07 | Outpatient (CLI) | payer MEDICARE, SELFPAY ==
[2023-11-07 15:15] LABS: Ferritin 99 ng/mL (8-252); Iron 36 ug/dL (50-170); Iron Binding Capacity,Total 267 ug/dL (250-450); PERCENT IRON SATURATION 13.5 % (15.0-55.0)
== END | disposition home or self-care (01) ==
PROVIDERS: PCP Internal Medicine; Referring Provider Internal Medicine; Visit Provider Internal Medicine
DX: D50.9 Iron deficiency anemia, unspecified (principal)
CPT/HCPCS: 36415; 82728; 83540; 83550

== ENCOUNTER → 2023-12-20 | Outpatient (CLI) | payer MEDICARE, SELFPAY ==
--- NOTE | 2023-12-20 11:56 | BI_ITS ---
MAMMOGRAPHY - BILATERAL SCREENING 3-D TOMOSYNTHESIS REASON FOR EXAM: Female, 78 years old. Screening for breast cancer PERTINENT HISTORY: No significant family history. TECHNIQUE: 2-D mammograms and 3-D Tomosynthesis of the breast (s) were performed. CAD was performed. COMPARISON: 12/07/2022 FINDINGS: The breast composition is composed of scattered fibroglandular density. Scattered benign calcifications are seen. No dense spiculated masses or suspicious microcalcifications are identified. No architectural distortion is identified. There is no skin thickening or retraction. There has been no significant change since the prior study. BI/SCRN MAMM (CAD)W/CURRY BILAT IMPRESSION: No mammographic signs of malignancy. Routine yearly mammograms recommended. ASSESSMENT CATEGORY: BIRADS Category 1: Negative. A letter regarding these results will be sent to the patient by the facility within 30 days. FOLLOW UP RECOMMENDATION: Yearly follow up mammogram recommended. (A) Approximately 10% of breast cancers are not detected by mammography. A normal mammogram should not delay biopsy of a clinically suspicious abnormality. Electronically Signed: Holden Shepherd MD at 14:02 EDT ,
== END | disposition home or self-care (01) ==
LOC: OPBI 11:55
PROVIDERS: PCP Internal Medicine; Referring Provider Nurse Practitioner Women's Health; Visit Provider Nurse Practitioner Women's Health
DX: Z12.31 Encounter for screening mammogram for malignant neoplasm of breast (principal)
CPT/HCPCS: 77063; 77067

== ENCOUNTER → 2024-04-13 | Outpatient (CLI) | payer MEDICARE, SELFPAY ==
[2024-04-13 15:43] LABS: Hematocrit 42.7 % (37-47); Hemoglobin 13.6 g/dL (12.0-15.0); Mean Corp Hgb Conc 31.9 g/dL (32-36); Mean Corpuscular Hgb 28.6 pg (27.0-32.0); Mean Corpuscular Volume 89.7 fL (81-99); Mean Platelet Vol. 10.5 fl (6.2-12.0); Platelet Count 263 K/mm3 (150-450); Red Blood Count 4.76 M/mm3 (4.2-5.4); White Blood Count 5.5 K/mm3 (4.4-11.0)
[2024-04-13 15:53] LABS: ALB/GLOB Ratio 1.1 RATIO (0.9-2.4); AST(SGOT) 19 U/L (15-37); Alanine Aminotransfer ALT/SGPT 22 U/L (13-56); Albumin, Serum 3.4 g/dL (3.2-5.0); Alkaline Phosphatase 71 U/L (45-117); Anion Gap 6 (5-15); BUN 16 mg/dL (7-18); BUN/Creat Ratio 17.6 RATIO (10-20); CRP 3.67 mg/L (0.0-3.0); Chloride 107 mmol/L (98-107); Creatinine, Serum 0.91 mg/dL (0.55-1.02); EST Glomerular Filtration Rate 63 mL/min (>60); Est Glom Filt Rate - Afr Amer 77 mL/min (>60); Ferritin 129 ng/mL (8-252); Globulin 3.2 g/dL (2.2-4.2); Glucose 98 mg/dL (74-106); Iron 59 ug/dL (50-170); Potassium 4.1 mmol/L (3.5-5.1); Protein, Total 6.6 g/dL (6.4-8.2); Sodium Level 141 mmol/L (136-145)
[2024-04-16 10:03] LABS: Iron Binding Capacity,Total 221 ug/dL (250-450); PERCENT IRON SATURATION 26.7 % (15.0-55.0)
== END | disposition home or self-care (01) ==
LOC: PAVLAB 15:21
PROVIDERS: PCP Internal Medicine; Referring Provider Internal Medicine; Visit Provider Internal Medicine
DX: K51.211 Ulcerative (chronic) proctitis with rectal bleeding (principal)
CPT/HCPCS: 36415; 80053; 82728; 83540; 83550; 85027; 86140

== ENCOUNTER → 2024-05-04 | Outpatient (CLI) | payer MEDICARE, SELFPAY ==
[2024-05-04 15:24] LABS: Vitamin D,25 Hydroxy 23.3 ng/mL
[2024-05-04 15:45] LABS: Cholesterol 200 mg/dL (200); High Density Lipoprotein 60 mg/dL; Triglycerides 147 mg/dL; Very Low Density Lipoprotein 29 mg/dL (5-40)
== END | disposition home or self-care (01) ==
LOC: BIMLAB 11:55
PROVIDERS: PCP Internal Medicine; Referring Provider Internal Medicine; Visit Provider Internal Medicine
DX: E55.9 Vitamin D deficiency, unspecified (principal); E78.2 Mixed hyperlipidemia
CPT/HCPCS: 36415; 80061; 82306

== ENCOUNTER → 2024-12-21 | Outpatient (CLI) | payer MEDICARE, SELFPAY ==
--- NOTE | 2024-12-21 08:45 | BI_ITS ---
EXAM: SCRN MAMM (CAD)W/CURRY BILAT DATE: 12/21/2024 CLINICAL HISTORY: F, Age 79 y/o , SCREENING FOR BREAST CANCER TECHNIQUE: SCRN MAMM (CAD)W/CURRY BILAT COMPARISON: Prior exam(s) were compared FINDINGS: TISSUE DENSITY: The breasts are heterogeneously dense, which may obscure small masses. Bilateral Breast Mammographic Findings: No suspicious masses, calcifications or other abnormalities are identified. BI/SCRN MAMM (CAD)W/CURRY BILAT IMPRESSION: No mammographic evidence of malignancy in either breast. OVERALL FINAL ASSESSMENT BI-RADS 1: NEGATIVE. RECOMMEND ANNUAL MAMMOGRAPHIC SCREENING. RECOMMENDATION: Routine annual follow-up in 1 Year A letter with findings and recommendations will be mailed to the patient. Reading Location: [id number]
== END | disposition home or self-care (01) ==
LOC: OPBI 08:40
PROVIDERS: PCP Internal Medicine; Referring Provider Nurse Practitioner Women's Health; Visit Provider Nurse Practitioner Women's Health
DX: Z12.31 Encounter for screening mammogram for malignant neoplasm of breast (principal)
CPT/HCPCS: 77063; 77067

== ENCOUNTER → 2025-04-01 | Outpatient (CLI) | payer MEDICARE, SELFPAY | END | disposition home or self-care (01) | LOC: LABSPEC 12:28 | PROVIDERS: PCP Internal Medicine; Referring Provider Nurse Practitioner Family; Visit Provider Nurse Practitioner Family | DX: Z00.00 Encounter for general adult medical examination without abnormal findings (principal) ==